=== PATIENT | female | born 1945 | race Caucasian/White ===

== ENCOUNTER 2016-05-10 18:29 | Inpatient (IN) | payer MEDICARE ==
[2016-05-10] MEDS ORDERED: HYDROCODONE/ACETAMINOPHEN 5-325 MG TABLET PO ONE (19:16)
[2016-05-10] MEDS ORDERED: HYDROCODONE/ACETAMINOPHEN 5-325 MG TABLET ONE (19:19)
--- NOTE | 2016-05-10 19:21 | ER Document Report ---
ED Medical Screen (RME) - General Stated Complaint: FALL,RIGHT ANKLE PAIN Notes: EMS reports the patient has a very high bed and her son gave her a footstool to be able to get in and out of the bed. Stumbled off stool today injuring right foot. EMS reports patient is insulin-dependent diabetic, and her blood sugar was over 500 today when I checked it. Patient may need social work consult as son is not very willing to assist in her care. I have greeted and performed a rapid initial assessment of this patient. A comprehensive ED assessment and evaluation of the patient, analysis of test results and completion of the medical decision making process will be conducted by additional ED providers. TRAVEL OUTSIDE OF THE [place] IN LAST 30 DAYS: No - Related Data Allergies/Adverse Reactions: atropine sulfate [From Lomotil] Allergy (Verified 05/10/16 19:18) Unknown diphenoxylate HCl [From Lomotil] Allergy (Verified 05/10/16 19:18) Unknown NSAIDS (Non-Steroidal Anti-Inflamma [Nsaids] Allergy (Verified 05/10/16 19:18) Unknown pseudoephedrine HCl [From Sudafed] Allergy (Verified 05/10/16 19:18) Unknown Past Medical History - Past Medical History Cardiac Medical History: Reports: Hx Coronary Artery Disease, Hx Heart Attack - x3 since january, Hx Hypercholesterolemia, Hx Hypertension Pulmonary Medical History: Denies: Hx Tuberculosis Neurological Medical History: Reports: Hx Cerebrovascular Accident. Denies: Hx Seizures Endocrine Medical History: Reports: Hx Diabetes Mellitus Type 2 GI Medical History: Reports: Hx Gastroesophageal Reflux Disease - hernia, Hx Ulcer - Moving from a prior gastric bypass anastomotic ulcer. Musculoskeltal Medical History: Reports Hx Arthritis Psychiatric Medical History: Reports: Hx Dementia, Hx Depression Past Surgical History: Reports: Hx Cardiac Catheterization, Hx Cardiac Surgery - CABG x3 twice, Hx Coronary Stent - x3 due to stent occlusion, Hx Gastric Bypass Surgery, Hx Hysterectomy, Hx Pancreatic Surgery, Hx Tonsillectomy - Immunizations Hx Diphtheria, Pertussis, Tetanus Vaccination: - unknown Physical Exam - Vital signs Vitals: Pulse Resp BP Pulse Ox 116 H 24 H 149/124 H 100 05/10/16 19:13 05/10/16 19:13 05/10/16 19:13 05/10/16 19:13 - Extremities Notes: Right foot swollen with bruising noted to up her foot. Painful with touch. Course - Vital Signs Vital signs: Temp Pulse Resp BP Pulse Ox 98.1 F 116 H 24 H 149/124 H 100 05/10/16 19:14 05/10/16 19:13 05/10/16 19:13 05/10/16 19:13 05/10/16 19:13
[2016-05-10 21:39] LABS: APPEARANCE,URINE CLEAR; BILIRUBIN,URINE NEGATIVE (NEGATIVE); GLUCOSE, URINE >=500 mg/dL (NEGATIVE); KETONES,URINE NEGATIVE (NEGATIVE); LEUKOCYTE ESTERASE,URINE NEGATIVE (NEGATIVE); NITRITE,URINE NEGATIVE (NEGATIVE); PROTEIN,URINE NEGATIVE (NEGATIVE); URINE SPECIFIC GRAVITY 1.024; UROBILINOGEN,URINE NEGATIVE mg/dL (<2.0)
[2016-05-10] MEDS ORDERED: OXYCODONE-ACETAMINOPHEN 5-325 MG TABLET PO ONE (22:02)
[2016-05-10 22:17] LABS: ABSOLUTE BASOPHILS # (AUTO) 0.1 10^3/uL (0.0-0.2); ABSOLUTE EOSINOPHILS # (AUTO) 0.1 10^3/uL (0.0-0.6); ABSOLUTE LYMPHOCYTES (AUTO) 1.8 10^3/uL (0.5-4.7); ABSOLUTE NEUT (AUTO) 8.8 10^3/uL (1.7-8.2); BASOPHILS % (AUTO) 0.7 % (0-2); EOSINOPHILS % (AUTO) 0.7 % (0-6); HEMATOCRIT 39.2 % (36.0-47.0); HEMOGLOBIN 12.4 g/dL (12.0-15.5); LYMPHOCYTES % (AUTO) 15.2 % (13-45); MEAN CORPUSCULAR HEMOGLOBIN 26.4 pg (27.0-33.4); MEAN CORPUSCULAR HGB CONC 31.7 g/dL (32.0-36.0); MEAN CORPUSCULAR VOLUME 83 fl (80-97); MONOCYTES % (AUTO) 8.5 % (3-13); RED CELL DISTRIBUTION WIDTH 15.6 % (11.5-14.0); SEGMENTED NEUTROPHILS % (AUTO) 74.9 % (42-78); WHITE BLOOD COUNT 11.7 10^3/uL (4.0-10.5)
[2016-05-10 22:38] LABS: ALANINE AMINOTRANSFERASE 23 U/L (9-52); ALKALINE PHOSPHATASE 161 U/L (38-126); ANION GAP 13 (5-19); ASPARTATE AMINO TRANSFERASE 9 U/L (14-36); BILIRUBIN,TOTAL 0.5 mg/dL (0.2-1.3); BLOOD UREA NITROGEN 24 mg/dL (7-20); CALCIUM 10.4 mg/dL (8.4-10.2); CARBON DIOXIDE 21 mmol/L (22-30); CHLORIDE 99 mmol/L (98-107); CREATININE RESULT 0.79 mg/dL (0.52-1.25); POTASSIUM 4.6 mmol/L (3.6-5.0); SODIUM 132.9 mmol/L (137-145); TOTAL PROTEIN 7.5 g/dL (6.3-8.2)
[2016-05-10 22:54] LABS: GLUCOSE 487 mg/dL (75-110)
[2016-05-11] MEDS ORDERED: NORMAL SALINE 1000 ML 1,000 ML IV PRN (00:14)
[2016-05-11] MEDS ORDERED: INSULIN REG, HUMAN 100 UNIT/ML 3 ML VIAL (PYX) SUBCUT ONE (00:14)
[2016-05-11] MEDS ORDERED: MORPHINE SULFATE 10 MG/ML INJ IV ONE ×2 (00:30→10:13)
--- NOTE | 2016-05-11 05:32 | ER Document Report ---
ED Extremity Problem, Lower - General Chief Complaint: Ankle Injury Stated Complaint: FALL,RIGHT ANKLE PAIN Time seen by provider: 05:30 Mode of Arrival: Stretcher Information source: Patient TRAVEL OUTSIDE OF THE [place] IN LAST 30 DAYS: No - HPI Patient complains to provider of: Injury, Pain, Swelling Location: Foot Occurred: This afternoon Where: Home Onset/Duration: Sudden Quality of pain: Achy Severity: Moderate Pain Level: 4 Context: Fell Recent injury: Yes Associated symptoms: Unable to bear weight Exacerbated by: Movement, Walking Relieved by: Nothing Notes: Patient is a 70-year-old female brought to the emergency room by EMS for complaints of injury to right foot that occurred earlier today, states she tripped over a bedside table causing injury to the foot, she denies a head injury or loss of consciousness, denies injury or pain elsewhere, although she does report that the pain radiates up the midportion of the lower leg - Related Data Allergies/Adverse Reactions: atropine sulfate [From Lomotil] Allergy (Verified 05/10/16 19:18) Unknown diphenoxylate HCl [From Lomotil] Allergy (Verified 05/10/16 19:18) Unknown NSAIDS (Non-Steroidal Anti-Inflamma [Nsaids] Allergy (Verified 05/10/16 19:18) Unknown pseudoephedrine HCl [From Sudafed] Allergy (Verified 05/10/16 19:18) Unknown Past Medical History - General Information source: Patient - Social History Smoking Status: Never Smoker Chew tobacco use (# tins/day): No Frequency of alcohol use: None Drug Abuse: None Family History: CAD, CVA, DM - Past Medical History Cardiac Medical History: Reports: Hx Coronary Artery Disease, Hx Heart Attack - x3 since january, Hx Hypercholesterolemia, Hx Hypertension Pulmonary Medical History: Denies: Hx Tuberculosis Neurological Medical History: Reports: Hx Cerebrovascular Accident. Denies: Hx Seizures Endocrine Medical History: Reports: Hx Diabetes Mellitus Type 2 Renal/ Medical History: Denies: Hx Peritoneal Dialysis GI Medical History: Reports: Hx Gastroesophageal Reflux Disease - hernia, Hx Ulcer - Moving from a prior gastric bypass anastomotic ulcer. Musculoskeltal Medical History: Reports Hx Arthritis Psychiatric Medical History: Reports: Hx Dementia, Hx Depression Past Surgical History: Reports: Hx Cardiac Catheterization, Hx Cardiac Surgery - CABG x3 twice, Hx Coronary Stent - x3 due to stent occlusion, Hx Gastric Bypass Surgery, Hx Hysterectomy, Hx Pancreatic Surgery, Hx Tonsillectomy - Immunizations Hx Diphtheria, Pertussis, Tetanus Vaccination: - unknown Hx Pneumococcal Vaccination: 02/03/13 Review of Systems - Review of Systems Constitutional: No symptoms reported EENT: No symptoms reported Cardiovascular: No symptoms reported Respiratory: No symptoms reported Gastrointestinal: No symptoms reported Genitourinary: No symptoms reported Female Genitourinary: No symptoms reported Musculoskeletal: See HPI Skin: No symptoms reported Hematologic/Lymphatic: No symptoms reported Neurological/Psychological: No symptoms reported -: Yes All other systems reviewed and negative Physical Exam - Vital signs Vitals: Pulse Resp BP Pulse Ox 116 H 24 H 149/124 H 100 05/10/16 19:13 05/10/16 19:13 05/10/16 19:13 05/10/16 19:13 Interpretation: Normal - General General appearance: Appears well, Alert - HEENT Head: Normocephalic, Atraumatic Eyes: Normal Pupils: PERRL - Respiratory Respiratory status: No respiratory distress Chest status: Nontender Breath sounds: Normal Chest palpation: Normal - Cardiovascular Rhythm: Tachycardia Heart sounds: Normal auscultation Murmur: No - Abdominal Inspection: Normal Distension: No distension Bowel sounds: Normal Tenderness: Nontender Organomegaly: No organomegaly - Back Back: Normal, Nontender - Extremities General upper extremity: Normal inspection, Nontender, Normal color, Normal ROM , Normal temperature General lower extremity: No: Ananda's sign Foot: Tender, Ecchymosis - Patient's right foot with significant swelling, ecchymosis and tenderness diffusely, pain with range of motion testing, 2+ DP pulses and purse capillary refill - Neurological Cognition: Confused Orientation: Disoriented to events [place] Coma Scale Eye Opening: Spontaneous [place] Coma Scale Verbal: Confused [place] Coma Scale Motor: Obeys Commands [place] Coma Scale Total: 14 Speech: Normal Motor strength normal: LUE, RUE, LLE, RLE - Psychological Associated symptoms: Normal affect, Normal mood - Skin Skin Temperature: Warm Skin Moisture: Dry Skin Color: Normal Course - Re-evaluation Re-evalutation: 05/11/16 05:38 Patient is resting comfortably, imaging shows no evidence of fracture or dislocation, patient was advised of this, she is pleasantly confused and forgetful, however it appears as though she lives at home alone, there is a son listed as an emergency contact with a separate address from patient's, I have asked nursing staff to attempt to contact her son, however the nurse practitioner then initially saw patient stated "patient may need social work consult as son is not very willing to assist in her care", that nurse practitioner is no longer on shift, so I'm unable to clarify whether patient stated this or the sun in fact stated he was unable to help patient, therefore patient will be held in the emergency room for social work consult for possible placement in a short-term rehabilitation until she is able to ambulate and take care of herself once again - Vital Signs Vital signs: Temp Pulse Resp BP Pulse Ox 98.1 F 116 H 24 H 149/124 H 100 05/10/16 19:14 05/10/16 19:13 05/10/16 19:13 05/10/16 19:13 05/10/16 19:13 - Laboratory Result Diagrams: 05/10/16 22:00 05/10/16 22:00 Laboratory results interpreted by me: 05/10/16 05/10/16 05/10/16 21:15 22:00 22:00 WBC 11.7 H MCH 26.4 L MCHC 31.7 L RDW 15.6 H Absolute Neutrophils 8.8 H Sodium 132.9 L Carbon Dioxide 21 L BUN 24 H Glucose 487 H* POC Glucose Calcium 10.4 H AST 9 L Alkaline Phosphatase 161 H Urine Glucose (UA) >=500 H 05/11/16 03:07 WBC MCH MCHC RDW Absolute Neutrophils Sodium Carbon Dioxide BUN Glucose POC Glucose 344 H Calcium AST Alkaline Phosphatase Urine Glucose (UA) - Diagnostic Test Radiology reviewed: Image reviewed, Reports reviewed Procedures - Immobilization Right Foot Time completed: 05:40 Pre-Proc Neuro Vasc Exam: Normal Immobilizer type: Posterior ankle Performed by: PCT Post-Proc Neuro Vasc Exam: Normal Alignment checked and good: Yes Discharge - Discharge Clinical Impression: Right foot strain Qualifiers: Encounter type: initial encounter Qualified Code(s): S96.911A - Strain of unspecified muscle and tendon at ankle and foot level, right foot, initial encounter Condition: Stable Disposition: HOME, SELF-CARE Instructions: Soft Ankle Splint ([facility]), Ice & Elevation ([facility]), Sprained Ankle ( [facility]) Additional Instructions: Follow up with your primary care provider and an orthopedic surgeon in one to 2 days. Return to the emergency room immediately if symptoms worsen or any additional concerns. Ice and elevate the affected extremity. Limit weightbearing. Prescriptions: Hydrocodone/Acetaminophen [Hydrocodon-Acetaminophen 5-325] 1 each PO Q6 #20 tablet Referrals: HAILY WEBB MD [ACTIVE STAFF] - Follow up as needed
[2016-05-11] MEDS ORDERED: OXYCODONE-ACETAMINOPHEN 5-325 MG TABLET PO PRN (14:37)
[2016-05-11] MEDS ORDERED: INSULIN GLARGINE,HUM.REC.ANLOG 1,000 UNIT/10 ML UNIT SUBCUT SCH (14:45)
[2016-05-11] MEDS ORDERED: DEXTROSE 40% GEL 15 GM TUBE PO PRN ×2 (14:51)
[2016-05-11] MEDS ORDERED: DEXTROSE 50%-WATER 25 GM/50 ML DISP.SYRIN IV PRN ×2 (14:51)
[2016-05-11] MEDS ORDERED: GLUCAGON,HUMAN RECOMB 1 MG INJ IM PRN (14:51)
[2016-05-11] MEDS ORDERED: INSULIN GLARGINE,HUM.REC.ANLOG 1,000 UNIT/10 ML UNIT SUBCUT ONE (15:15)
[2016-05-11] MEDS ORDERED: ENOXAPARIN SODIUM INJ 40 MG/0.4 ML DISP.SYRIN SUBCUT ONE (16:30)
--- NOTE | 2016-05-11 16:36 | PDOC H&P ---
History of Present Illness Admission Date/PCP: 05/11/16 14:37 History of Present Illness: LAINA WEAVER is a 70 year old female with known coronary artery disease and PTCA and stent in 2013 With sustained a fall while walking up the stairs today Patient a was brought to the ED and was diagnosed of her ankle fracture Patient was not able to ambulate after the fall and she was extremely confused Had no recollection of what medication she takes; she states that her confusion has been going on now for "a while "it has gotten worse but is now worse to the point that she feels she cannot care for herself She lives alone, has diabetes Patient denies any chest pain shortness of breath, she denies having had a syncopal episode Past Medical History Cardiac Medical History: Reports: Coronary Artery Disease, Myocardial Infarction - x3 since january, Hyperlipidema, Hypertension Pulmonary Medical History: Denies: Tuberculosis Neurological Medical History: Denies: Seizures Endocrine Medical History: Reports: Diabetes Mellitus Type 2 GI Medical History: Reports: Gastroesophageal Reflux Disease - hernia Musculoskeltal Medical History: Reports: Arthritis Psychiatric Medical History: Reports: Dementia, Depression Hematology: Reports: Anemia Past Surgical History Past Surgical History: Reports: Cardiac Catheterization, Coronary Stent - x3 due to stent occlusion, Gastric Bypass Surgery, Hysterectomy, Tonsillectomy Social History Information Source: Patient Smoking Status: Never Smoker Frequency of Alcohol Use: Rare Hx Recreational Drug Use: No Hx Prescription Drug Abuse: No - Advance Directive Resuscitation Status: Do Not Resuscitate Surrogate healthcare decision maker:: Her son Lane Family History Family History: CAD, CVA, DM Parental Family History Reviewed: Yes Children Family History Reviewed: Yes Sibling(s) Family History Reviewed.: Yes Medication/Allergy Allergies/Adverse Reactions: atropine sulfate [From Lomotil] Allergy (Verified 05/10/16 19:18) Unknown diphenoxylate HCl [From Lomotil] Allergy (Verified 05/10/16 19:18) Unknown NSAIDS (Non-Steroidal Anti-Inflamma [Nsaids] Allergy (Verified 05/10/16 19:18) Unknown pseudoephedrine HCl [From Sudafed] Allergy (Verified 05/10/16 19:18) Unknown Review of Systems Constitutional: ABSENT: anorexia, chills, fever(s), headache(s) Cardiovascular: ABSENT: chest pain, dyspnea on exertion, edema, orthropnea, palpitations Respiratory: ABSENT: cough, hemoptysis Gastrointestinal: ABSENT: abdominal pain, constipation, diarrhea, hematemesis, hematochezia, nausea, vomiting Musculoskeletal: PRESENT: other - severe pain in the left ankle Neurological: PRESENT: confusion, memory loss, weakness Psychiatric: PRESENT: depression Physical Exam Vital Signs: Temp Pulse Resp BP Pulse Ox 98.2 F 91 16 154/65 H 95 05/11/16 15:42 05/11/16 15:42 05/11/16 15:42 05/11/16 15:42 05/11/16 15:42 Intake & Output 05/10/16 05/11/16 05/12/16 00:59 00:59 00:59 Weight 77.111 kg General appearance: PRESENT: cooperative, mild distress Head exam: PRESENT: atraumatic, normocephalic Eye exam: PRESENT: conjunctiva pink, EOMI, PERRLA. ABSENT: scleral icterus Neck exam: ABSENT: carotid bruit - a, JVD, lymphadenopathy, thyromegaly Respiratory exam: PRESENT: clear to auscultation kay[place]. ABSENT: rales, rhonchi, wheezes Cardiovascular exam: PRESENT: RRR. ABSENT: diastolic murmur, rubs, systolic murmur Pulses: PRESENT: normal dorsalis pedis pul GI/Abdominal exam: PRESENT: normal bowel sounds, soft. ABSENT: distended, guarding, mass, organolmegaly, rebound, tenderness Extremities exam: PRESENT: tenderness, other - Left ankle is in a posterior splint Neurological exam: PRESENT: awake, CN II-XII grossly intact Psychiatric exam: PRESENT: anxious, depressed Results Laboratory Results: Labs- Last Values WBC 11.7 10^3/uL (4.0-10.5) H 05/10/16 22:00 RBC 4.70 10^6/uL (3.72-5.28) 05/10/16 22:00 Hgb 12.4 g/dL (12.0-15.5) 05/10/16 22:00 Hct 39.2 % (36.0-47.0) 05/10/16 22:00 MCV 83 fl (80-97) 05/10/16 22:00 MCH 26.4 pg (27.0-33.4) L 05/10/16 22:00 MCHC 31.7 g/dL (32.0-36.0) L 05/10/16 22:00 RDW 15.6 % (11.5-14.0) H 05/10/16 22:00 Plt Count 336 10^3/uL (150-450) 05/10/16 22:00 Seg Neutrophils % 74.9 % (42-78) 05/10/16 22:00 Lymphocytes % 15.2 % (13-45) 05/10/16 22:00 Monocytes % 8.5 % (3-13) 05/10/16 22:00 Eosinophils % 0.7 % (0-6) 05/10/16 22:00 Basophils % 0.7 % (0-2) 05/10/16 22:00 Absolute Neutrophils 8.8 10^3/uL (1.7-8.2) H 05/10/16 22:00 Absolute Lymphocytes 1.8 10^3/uL (0.5-4.7) 05/10/16 22:00 Absolute Monocytes 1.0 10^3/uL (0.1-1.4) 05/10/16 22:00 Absolute Eosinophils 0.1 10^3/uL (0.0-0.6) 05/10/16 22:00 Absolute Basophils 0.1 10^3/uL (0.0-0.2) 05/10/16 22:00 Sodium 132.9 mmol/L (137-145) L 05/10/16 22:00 Potassium 4.6 mmol/L (3.6-5.0) 05/10/16 22:00 Chloride 99 mmol/L (98-107) 05/10/16 22:00 Carbon Dioxide 21 mmol/L (22-30) L 05/10/16 22:00 Anion Gap 13 (5-19) 05/10/16 22:00 BUN 24 mg/dL (7-20) H 05/10/16 22:00 Creatinine 0.79 mg/dL (0.52-1.25) 05/10/16 22:00 Est GFR ( Amer) > 60 (>60) 05/10/16 22:00 Est GFR (Non-Af Amer) > 60 (>60) 05/10/16 22:00 Glucose 487 mg/dL (75-110) H* 05/10/16 22:00 POC Glucose 367 mg/dL (70-110) H 05/11/16 15:32 Calcium 10.4 mg/dL (8.4-10.2) H 05/10/16 22:00 Total Bilirubin 0.5 mg/dL (0.2-1.3) 05/10/16 22:00 Direct Bilirubin 0.0 mg/dL (0.0-0.3) 05/10/16 22:00 AST 9 U/L (14-36) L 05/10/16 22:00 ALT 23 U/L (9-52) 05/10/16 22:00 Alkaline Phosphatase 161 U/L (38-126) H 05/10/16 22:00 Total Protein 7.5 g/dL (6.3-8.2) 05/10/16 22:00 Albumin 4.0 g/dL (3.5-5.0) 05/10/16 22:00 Urine Color STRAW 05/10/16 21:15 Urine Appearance CLEAR 05/10/16 21:15 Urine pH 5.0 (5.0-9.0) 05/10/16 21:15 Ur Specific [place] 1.024 05/10/16 21:15 Urine Protein NEGATIVE mg/dL (NEGATIVE) 05/10/16 21:15 Urine Glucose (UA) >=500 mg/dL (NEGATIVE) H 05/10/16 21:15 Urine Ketones NEGATIVE mg/dL (NEGATIVE) 05/10/16 21:15 Urine Blood NEGATIVE (NEGATIVE) 05/10/16 21:15 Urine Nitrite NEGATIVE (NEGATIVE) 05/10/16 21:15 Urine Bilirubin NEGATIVE (NEGATIVE) 05/10/16 21:15 Urine Urobilinogen NEGATIVE mg/dL (<2.0) 05/10/16 21:15 Ur Leukocyte Esterase NEGATIVE (NEGATIVE) 05/10/16 21:15 Urine WBC (Auto) 2 /HPF 05/10/16 21:15 Squamous Epi Cells Auto 1 /HPF 05/10/16 21:15 Urine Ascorbic Acid NEGATIVE (NEGATIVE) 05/10/16 21:15 Impressions: Foot X-Ray 05/10/16 19:21 IMPRESSION: DEGENERATIVE CHANGE ABOVE. NO RADIOGRAPHIC EVIDENCE OF ACUTE INJURY. Ankle X-Ray 05/10/16 22:02 IMPRESSION: TINY BONE FRAGMENT DEEP TO THE LATERAL MALLEOLUS MAY REPRESENT SEQUELA TO ACUTE OR CHRONIC AVULSION TYPE INJURY. CORRELATE WITH SITE OF PAIN AND MECHANISM OF INJURY. ADDITIONAL CHRONIC CHANGES ABOVE. Assessment & Plan - Diagnosis (1) Right ankle sprain Qualifiers: Involved ligament of ankle: unspecified ligament Is this a current diagnosis for this admission?: YesPlan: Keep the patient for now in the posterior splint We will have physical therapy evaluate her CAM walker boot will be applied (2) Encephalopathy Is this a current diagnosis for this admission?: YesPlan: Acute on chronic Or? 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 transplanted heart: [place] heart Associated angina: with unspecified angina Qualified Code(s): I25.119 - Atherosclerotic heart disease of [place] coronary artery with unspecified angina pectoris Is this a current diagnosis for this admission?: YesPlan: Her we will obtain serial cardiac enzymes and an EKG Patient does not mention any chest pain We will continue patient's medications when the list is available - Time Time Spent with patient: Patient was admitted as an inpatient to medical unit Time Spent: 50 to 70 Minutes
[2016-05-11] MEDS: TRAMADOL HCL 50 MG TABLET PO PRN (17:23)
[2016-05-11] MEDS: INSULIN LISPRO 100 UNIT/ML 3 ML VIAL SUBCUT PRN ×2 (17:24→22:00)
[2016-05-11 17:42] LABS: APPEARANCE,URINE SLIGHTLY-CLOUDY; BILIRUBIN,URINE NEGATIVE (NEGATIVE); GLUCOSE, URINE >=500 mg/dL (NEGATIVE); KETONES,URINE NEGATIVE (NEGATIVE); LEUKOCYTE ESTERASE,URINE MODERATE (NEGATIVE); NITRITE,URINE NEGATIVE (NEGATIVE); PROTEIN,URINE NEGATIVE (NEGATIVE); URINE SPECIFIC GRAVITY 1.025; UROBILINOGEN,URINE NEGATIVE mg/dL (<2.0)
[2016-05-11] MEDS ORDERED: INFLUENZA ADLT QUAD (36MOS+) 2016-17 VAC 0.5 ML SYR IM PRN (17:48)
[2016-05-11 19:13] LABS: FOLATE > 20.00 ng/mL (>2.76)
[2016-05-11] MEDS: INSULIN GLARGINE,HUM.REC.ANLOG 300 UNIT/3 ML INSULN.PEN SUBCUT SCH (21:57)
[2016-05-12] MEDS: TRAMADOL HCL 50 MG TABLET PO PRN ×3 (06:01→22:39)
[2016-05-12 06:39] LABS: ABSOLUTE BASOPHILS # (AUTO) 0.1 10^3/uL (0.0-0.2); ABSOLUTE EOSINOPHILS # (AUTO) 0.2 10^3/uL (0.0-0.6); ABSOLUTE LYMPHOCYTES (AUTO) 2.5 10^3/uL (0.5-4.7); ABSOLUTE MONOCYTES (AUTO) 0.9 10^3/uL (0.1-1.4); ABSOLUTE NEUT (AUTO) 3.9 10^3/uL (1.7-8.2); BASOPHILS % (AUTO) 0.9 % (0-2); EOSINOPHILS % (AUTO) 2.2 % (0-6); HEMATOCRIT 39.2 % (36.0-47.0); HEMOGLOBIN 12.7 g/dL (12.0-15.5); HGB HCT DIFFERENCE -1.1; LYMPHOCYTES % (AUTO) 33.1 % (13-45); MEAN CORPUSCULAR HGB CONC 32.3 g/dL (32.0-36.0); MEAN CORPUSCULAR VOLUME 84 fl (80-97); MONOCYTES % (AUTO) 11.8 % (3-13); RED BLOOD COUNT 4.69 10^6/uL (3.72-5.28); RED CELL DISTRIBUTION WIDTH 15.2 % (11.5-14.0); WHITE BLOOD COUNT 7.4 10^3/uL (4.0-10.5)
[2016-05-12 06:55] LABS: ALANINE AMINOTRANSFERASE 26 U/L (9-52); ALBUMIN 3.7 g/dL (3.5-5.0); ALKALINE PHOSPHATASE 151 U/L (38-126); ANION GAP 14 (5-19); ASPARTATE AMINO TRANSFERASE 16 U/L (14-36); BILIRUBIN,TOTAL 0.6 mg/dL (0.2-1.3); BLOOD UREA NITROGEN 18 mg/dL (7-20); CALCIUM 10.3 mg/dL (8.4-10.2); CARBON DIOXIDE 22 mmol/L (22-30); CHLORIDE 106 mmol/L (98-107); CREATININE RESULT 0.65 mg/dL (0.52-1.25); GLUCOSE 169 mg/dL (75-110); POTASSIUM 4.6 mmol/L (3.6-5.0); SODIUM 141.7 mmol/L (137-145); TOTAL PROTEIN 7.1 g/dL (6.3-8.2)
[2016-05-12] MEDS: ENOXAPARIN SODIUM INJ 40 MG/0.4 ML DISP.SYRIN SUBCUT SCH (08:15)
[2016-05-12] MEDS: INSULIN GLARGINE,HUM.REC.ANLOG 300 UNIT/3 ML INSULN.PEN SUBCUT SCH ×2 (09:35→22:20)
[2016-05-12 10:35] LABS: CHOLESTEROL 174.37 mg/dL (0-200); Direct HDL 47 mg/dL (>40); TRIGLYCERIDES 159 mg/dL (<150)
[2016-05-12 10:46] LABS: DIRECT LDL 94 mg/dL (<100); VLDL CHOLESTEROL 31.8 mg/dL (10-31)
[2016-05-12] MEDS: CYANOCOBALAMIN (VITAMIN B-12) INJ 1000 MCG/1 ML VIAL IM SCH (12:54)
[2016-05-12] MEDS: INSULIN LISPRO 100 UNIT/ML 3 ML VIAL SUBCUT PRN ×2 (13:12→18:18)
--- NOTE | 2016-05-12 13:39 | PDOC PROGRESS REPORT ---
Subjective Progress Note for:: 05/12/16 Subjective:: still complaining of severe pain Pain right ankle and pain right flank radiating to right leg " like sciatica" No fever , no chills no headache or SOB Physical Exam Vital Signs: Temp Pulse Resp BP Pulse Ox 98.4 F 92 18 119/46 L 96 05/12/16 11:47 05/12/16 11:47 05/12/16 11:47 05/12/16 11:47 05/12/16 11:47 Intake & Output 05/11/16 05/12/16 05/13/16 00:59 00:59 00:59 Intake Total 0 Output Total 300 Balance -300 Weight 77.111 kg General appearance: PRESENT: no acute distress, well-developed, well-nourished Head exam: PRESENT: atraumatic, normocephalic Eye exam: PRESENT: conjunctiva pink, EOMI, PERRLA. ABSENT: scleral icterus Ear exam: PRESENT: normal external ear exam Mouth exam: PRESENT: moist, tongue midline Neck exam: ABSENT: carotid bruit, JVD, lymphadenopathy, thyromegaly Respiratory exam: PRESENT: clear to auscultation kaylen. ABSENT: rales, rhonchi, wheezes Cardiovascular exam: PRESENT: RRR. ABSENT: diastolic murmur, rubs, systolic murmur Pulses: PRESENT: normal dorsalis pedis pul Vascular exam: PRESENT: normal capillary refill GI/Abdominal exam: PRESENT: normal bowel sounds, soft. ABSENT: distended, guarding, mass, organolmegaly, rebound, tenderness Rectal exam: PRESENT: deferred Extremities exam: PRESENT: full ROM, other - splint applied to right ankle. ABSENT: calf tenderness, clubbing, pedal edema Neurological exam: PRESENT: alert, awake, oriented to person, oriented to place , oriented to time, oriented to situation, CN II-XII grossly intact. ABSENT: motor sensory deficit Psychiatric exam: PRESENT: appropriate affect, normal mood. ABSENT: homicidal ideation, suicidal ideation Skin exam: PRESENT: dry, intact, warm. ABSENT: cyanosis, rash Results Laboratory Results: 05/12/16 06:12 05/12/16 06:12 05/11/16 05/11/16 05/11/16 17:30 17:35 17:35 WBC RBC Hgb Hct MCV MCH MCHC RDW Plt Count Seg Neutrophils % Lymphocytes % Monocytes % Eosinophils % Basophils % Absolute Neutrophils Absolute Lymphocytes Absolute Monocytes Absolute Eosinophils Absolute Basophils Sodium Potassium Chloride Carbon Dioxide Anion Gap BUN Creatinine Est GFR ( Amer) Est GFR (Non-Af Amer) Glucose Calcium Total Bilirubin AST ALT Alkaline Phosphatase Total Protein Albumin Triglycerides Cholesterol LDL Cholesterol Direct VLDL Cholesterol HDL Cholesterol Vitamin B12 194.0 L Folate > 20.00 TSH 3.47 Urine Color YELLOW Urine Appearance SLIGHTLY-CLOUDY Urine pH 5.0 Ur Specific [place] 1.025 Urine Protein NEGATIVE Urine Glucose (UA) >=500 H Urine Ketones NEGATIVE Urine Blood SMALL H Urine Nitrite NEGATIVE Ur Leukocyte Esterase MODERATE H Urine WBC (Auto) 47 Urine RBC (Auto) 1 05/12/16 05/12/16 05/12/16 06:12 06:12 06:12 WBC 7.4 RBC 4.69 Hgb 12.7 Hct 39.2 MCV 84 MCH 27.0 MCHC 32.3 RDW 15.2 H Plt Count 368 Seg Neutrophils % 52.0 Lymphocytes % 33.1 Monocytes % 11.8 Eosinophils % 2.2 Basophils % 0.9 Absolute Neutrophils 3.9 Absolute Lymphocytes 2.5 Absolute Monocytes 0.9 Absolute Eosinophils 0.2 Absolute Basophils 0.1 Sodium 141.7 Potassium 4.6 Chloride 106 Carbon Dioxide 22 Anion Gap 14 BUN 18 Creatinine 0.65 Est GFR ( Amer) > 60 Est GFR (Non-Af Amer) > 60 Glucose 169 H Calcium 10.3 H Total Bilirubin 0.6 AST 16 ALT 26 Alkaline Phosphatase 151 H Total Protein 7.1 Albumin 3.7 Triglycerides 159 H Cholesterol 174.37 LDL Cholesterol Direct 94 VLDL Cholesterol 31.8 H HDL Cholesterol 47 Vitamin B12 Folate TSH Urine Color Urine Appearance Urine pH Ur Specific [place] Urine Protein Urine Glucose (UA) Urine Ketones Urine Blood Urine Nitrite Ur Leukocyte Esterase Urine WBC (Auto) Urine RBC (Auto) Impressions: Foot X-Ray 05/10/16 19:21 IMPRESSION: DEGENERATIVE CHANGE ABOVE. NO RADIOGRAPHIC EVIDENCE OF ACUTE INJURY. Ankle X-Ray 05/10/16 22:02 IMPRESSION: TINY BONE FRAGMENT DEEP TO THE LATERAL MALLEOLUS MAY REPRESENT SEQUELA TO ACUTE OR CHRONIC AVULSION TYPE INJURY. CORRELATE WITH SITE OF PAIN AND MECHANISM OF INJURY. ADDITIONAL CHRONIC CHANGES ABOVE. Head CT 05/11/16 14:47 IMPRESSION: MILD CHRONIC CHANGES OF ATROPHY AND MICROVASCULAR ISCHEMIA. NO ACUTE PROCESS. Assessment & Plan - Diagnosis (1) Right ankle sprain Qualifiers: Involved ligament of ankle: unspecified ligament Is this a current diagnosis for this admission?: YesPlan: PT will evaluate patient Patient may bear weight with cam walker (2) Encephalopathy Is this a current diagnosis for this admission?: YesPlan: likely to be secondary to Vitamin B12 deficiency and hyperglycemia Patient has severe short memory loss cannot live alone and care for self (3) Hyperglycemia due to type 2 diabetes mellitus Qualifiers: Diabetes mellitus terminal supervisor insulin use: unspecified penitentiary insulin use status Qualified Code(s): E11.65 - Type 2 diabetes mellitus with hyperglycemia Is this a current diagnosis for this admission?: YesPlan: increase lantus / lispro sliding scale (4) Coronary artery disease Qualifiers: Coronary Disease-Associated Artery/Lesion type: [place] artery [place] vs. transplanted heart: [place] heart Associated angina: with unspecified angina Qualified Code(s): I25.119 - Atherosclerotic heart disease of [place] coronary artery with unspecified angina pectoris Is this a current diagnosis for this admission?: Yes (6) Vitamin B12 deficiency Is this a current diagnosis for this admission?: YesPlan: initiate IM injections (7) Aortic stenosis Qualifiers: Cardiac valve disease etiology: etiology unspecified Qualified Code( s): I35.0 - Nonrheumatic aortic (valve) stenosis Is this a current diagnosis for this admission?: YesPlan: mild Aortic stenosis by echo 2013 will repeat echocardiogram - Time Time Spent with patient: 15-24 minutes - Inpatient Certification Medical Necessity: Need Close Monitoring Due to Risk of Patient Decompensation, Risk of Complication if Not Cared For in Hospital - uncontrolled diabetes in patient too confused to care for self vitamin [id number] needsreplacement with vitamin B12 IM initially
[2016-05-12] MEDS ORDERED: INSULIN GLARGINE,HUM.REC.ANLOG 300 UNIT/3 ML INSULN.PEN SUBCUT SCH (22:00)
[2016-05-13] MEDS: TRAMADOL HCL 50 MG TABLET PO PRN (04:44)
[2016-05-13] MEDS: ENOXAPARIN SODIUM INJ 40 MG/0.4 ML DISP.SYRIN SUBCUT SCH (09:50)
[2016-05-13] MEDS: INSULIN GLARGINE,HUM.REC.ANLOG 300 UNIT/3 ML INSULN.PEN SUBCUT SCH ×2 (09:51→22:09)
--- NOTE | 2016-05-13 11:29 | Physician Advisory Note ---
Physician Advisor ProgressNote .: [facility], I have reviewed the medical record for this patient. Physician Advisor Statement: Possible documentation opportunities if attending agrees: 1. "Principal Dx" - 'ankle sprain' is not typically going to be accepted as a reason for full Inpatient Admission. Please list as 1st dx the Principal Reason pt needs to be in the hospital. 2. "Acute encephalopathy on top of likely mild dementia" - need to clarify each day, as best as you can, whether or not pt is back to baseline mental status or not, & which days she had mental status worse than baseline. - Nursing notes report pt oriented to person only on 05/11, but A&O x3 since AM. Is this what you have found? - Is she now able to manage her DM adequately outpt, or ....? 3. "Medical Necessity" - crucial in a case such as this in which the main dx.s are not "slam-dunk" obvious Inpatient material. Need to document (for each night pt in hospital including 05/11-) what you are concerned could happen if pt not kept in hospital - development of DKA? ACS? Severe FSBS changes that could produce acute worsening mental status & alertness, risking falls/fx, acute organ dysfunction ...? (see below bolded suggestions) 4. "Acute Metabolic Acidosis at time of admission, likely due to severe hyperglycemia, now resolved" 5. ? "chronic diastolic CHF" (+diast dysfunction by ECHO 2013) As always, if concerned about any unstable VS or abnormal labs, please comment on them & note what doing about them, & please document each day the potential clinical problems you are concerned could occur if pt not kept in hospital for tx at this time. 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 HR 116, RR 24, WBC 11.7. Confused, forgetful, lives alone, severe pain, unable to ambulate. ED gave 8units regular insulin & 1L NS wide open. (+) Na 132.9 with glc 487, bicarb 21, BUN 24 w/Cr 0.79, Ca 10.4, U/A (+) mod LE . Attending ordered Lantus Q12h, VS @4h, I/Os, daily wts, PT, SSI. Status: Elderly pt with tremendous CAD issues, DM-2, HTN, past CVA presented with ankle sprain. This alone would not be enough to justify admission. Acute AMS is also not typically an Inpt dx unless there are extenuating circumstances/co-morbidities. This pt already needed 1 MN in ED 05/10 for evaluation, & on 05/11 was fully expected to require at least a 2nd MN for stabilization sufficient for safe d/c , due to her uncontrolled co-morbidity of DM. She came in w/ tremendous hyperglycemia with associated pseudohyponatremia, acute metabolic acidosis, & dehydration by BUN/Cr ratio, & what was most concerning in this situation, was extremely confused, reportedly worse than baseline. She was unable to tell her home meds list. She was oriented to self only. Nursing note at 14:62 states pt unable to give full hx & med rec, forgetting she had already ordered dinner 5 min after doing so. This was not a pt who could be expected to safely manage her DM at home alone, especially with insulin needs. Her glc of 487 put her had high risk of further acute coronary/ cardiovascular events. Her significant risks for developing hypoglycemia if allowed to manage her own diabetes with agents to drop FSBS certainly gave high risk for acute adverse event such as syncope/falls. This appears to be the main clinical reason to keep her in hospital initially. Her A1C >14.0 shows she has had extremely poor DM control for at least the last 3mo. As of 05/12, after 2MNs in hospital, staff still trying to determine her home meds list - pt still unable to give list. Attending documents severe short term memory loss, inability to safely care for self on her own anymore. Attending actively titrating up on Lantus, from 20 units bid to 25 units bid on 05/12, while FSBSs were quite unstable, ranging from 169 to 400. Ca still mildly high at 10.3. Attending concerned about aortic stenosis previously found in 2012, ordered ECHO. As of 05/13, pt FSBS before bkft = only 94, with new order today to change Lantus to 30units bid AC. Potential for dangerous hypoglycemia is possible with aggressive up-titration of Lantus if not monitored very closely. Hypoglycemia can produce yet further worsening of mental status & even alertness , increasing risks for further organ dysfunction, falls, fractures. Tx in inpatient hospital setting appears to be medically reasonable & necessary to protect pt's health, safety, & medical condition. Appropriate for Inpt status. Thanks for your help with documentation accuracy/specificity improvement! Mely Quiroz MD [facility] Physician Advisor, Fellow of Hospital Medicine
[2016-05-13] MEDS: CYANOCOBALAMIN (VITAMIN B-12) INJ 1000 MCG/1 ML VIAL IM SCH (12:04)
[2016-05-13] MEDS: OXYCODONE-ACETAMINOPHEN 5-325 MG TABLET PO PRN ×2 (12:05→19:30)
[2016-05-13] MEDS: DIPHENHYDRAMINE HCL 25 MG CAPSULE PO PRN (12:05)
[2016-05-13] MEDS: INSULIN LISPRO 100 UNIT/ML 3 ML VIAL SUBCUT PRN ×2 (13:47→22:09)
--- NOTE | 2016-05-13 15:17 | XCELERA REPORT ---
[address] [address] Transthoracic Echocardiogram Report Name: LAINA WEAVER Age: 70 yrs Gender: Female : 1945 Patient Status: Inpatient Patient Location: 2N\S\210\S\A Study Date: 05/13/2016 10:24 AM Height: 65 in Weight: 170 lb BSA: 1.8 m2 Procedure: A complete two-dimensional transthoracic echocardiogram was performed (2D, M-mode, spectral and color flow Doppler). The study was technically adequate with some images being suboptimal in quality. Reason For Study: heart murmur Ordering Physician: GARCIA RODRÍGUEZ Performed By: Barb Garcia Interpretation Summary The left ventricular ejection fraction is normal. Doppler measurements suggest pseudonormalized left ventricular relaxation, which is associated with grade II/IV or mild to moderate diastolic dysfunction There is borderline concentric left ventricular hypertrophy. The left ventricle is grossly normal size. Wall motion cannot be accurately commented on, but no definite regional wall motion abnormalities noted. The right ventricular systolic function is normal. The left atrium is moderately dilated. The right atrium is normal in size There is a mild amount of mitral regurgitation There is no mitral valve stenosis. There is mild to moderate aortic stenosis There is a peak gradient of 30 mean 17 mm of Hg. No aortic regurgitation is present. There is a trace or physiologic amount of tricuspid regurgitation Tricuspid regurgitation jet envelope not well defined to measure RV systolic pressure accurately. Minimal pericardial effusion. MMode/2D Measurements \T\ Calculations RVDd: 2.8 cm LVIDd: 4.8 cm FS: 35.6 % Ao root diam: 2.2 cm IVSd: 0.75 cm LVIDs: 3.1 cm EDV(Teich): 109.3 ml LVPWd: 0.76 cmESV(Teich): 38.2 ml Ao root area: 3.8 cm2 EF(Teich): 65.0 % LA dimension: 4.7 cm LVOT diam: 2.2 cm LVOT area: 3.7 cm2 Doppler Measurements \T\ Calculations MV E max freida: MV P1/2t max freida: Ao V2 max: LV V1 max P.4 cm/sec 82.9 cm/sec 263.7 cm/sec 3.7 mmHg MV A max freida: MV P1/2t: 58.1 msec Ao max PG: LV V1 mean P.2 cm/sec MVA(P1/2t): 3.8 cm2 27.8 mmHg 1.9 mmHg MV E/A: 0.85 MV dec slope: Ao V2 mean: LV V1 max: 418.0 cm/sec2 186.5 cm/sec 96.3 cm/sec MV dec time: 0.22 sec Ao mean PG: LV V1 mean: 16.1 mmHg 63.7 cm/sec Ao V2 VTI: 56.4 cmLV V1 VTI: CRYS(I,D): 1.4 cm2 21.8 cm CRYS(V,D): 1.4 cm2 SV(LVOT): 80.6 ml PA V2 max: 94.8 cm/sec PA max P.6 mmHg Left Ventricle The left ventricle is grossly normal size. There is borderline concentric left ventricular hypertrophy. The left ventricular ejection fraction is normal. Doppler measurements suggest pseudonormalized left ventricular relaxation, which is associated with grade II/IV or mild to moderate diastolic dysfunction. Wall motion cannot be accurately commented on, but no definite regional wall motion abnormalities noted. Right Ventricle The right ventricle is grossly normal size. There is normal right ventricular wall thickness. The right ventricular systolic function is normal. Atria The right atrium is normal in size. The left atrium is moderately dilated. A patent foramen ovale is suspected. Mitral Valve There is mild mitral annular calcification. There is no mitral valve stenosis. There is a mild amount of mitral regurgitation. Aortic Valve The aortic valve is moderately calcified. The aortic valve is trileaflet. There is mild to moderate aortic stenosis. There is a peak gradient of 30 mean 17 mm of Hg. No aortic regurgitation is present. Tricuspid Valve The tricuspid valve is not well visualized, but is grossly normal. There is no tricuspid stenosis. There is a trace or physiologic amount of tricuspid regurgitation. Tricuspid regurgitation jet envelope not well defined to measure RV systolic pressure accurately. Pulmonic Valve The pulmonic valve is not well visualized. Great Vessels The aortic root is not well visualized but is probably normal size. The inferior vena cava appeared normal and decreased > 50% with respiration (RAP 5-10 mmHg). Effusions Minimal pericardial effusion. : GARCIA RODRÍGUEZ > Brianna Wolf
--- NOTE | 2016-05-13 21:53 | PDOC PROGRESS REPORT ---
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 ABSENT: scleral icterus Ear exam: PRESENT: normal external ear exam Mouth exam: PRESENT: moist, tongue midline Neck exam: ABSENT: carotid bruit, JVD, lymphadenopathy, thyromegaly Respiratory exam: PRESENT: clear to auscultation kaylen. ABSENT: rales, rhonchi, wheezes Cardiovascular exam: PRESENT: RRR. ABSENT: diastolic murmur, rubs, systolic murmur Pulses: PRESENT: normal dorsalis pedis pul Vascular exam: PRESENT: normal capillary refill GI/Abdominal exam: PRESENT: normal bowel sounds, soft. ABSENT: distended, guarding, mass, organolmegaly, rebound, tenderness Rectal exam: PRESENT: deferred Extremities exam: PRESENT: full ROM. ABSENT: calf tenderness, clubbing, pedal edema Neurological exam: PRESENT: alert, awake, oriented to person, oriented to place , oriented to time, oriented to situation, CN II-XII grossly intact. ABSENT: motor sensory deficit Psychiatric exam: PRESENT: appropriate affect, normal mood. ABSENT: homicidal ideation, suicidal ideation Skin exam: PRESENT: dry, intact, warm. ABSENT: cyanosis, rash Results Laboratory Results: 05/12/16 06:12 05/12/16 06:12 05/11/16 17:30 Clean Catch Midstream Urine Culture - Final Mixed Urogenital Sheyla Impressions: Foot X-Ray 05/10/16 19:21 IMPRESSION: DEGENERATIVE CHANGE ABOVE. NO RADIOGRAPHIC EVIDENCE OF ACUTE INJURY. Ankle X-Ray 05/10/16 22:02 IMPRESSION: TINY BONE FRAGMENT DEEP TO THE LATERAL MALLEOLUS MAY REPRESENT SEQUELA TO ACUTE OR CHRONIC AVULSION TYPE INJURY. CORRELATE WITH SITE OF PAIN AND MECHANISM OF INJURY. ADDITIONAL CHRONIC CHANGES ABOVE. Head CT 05/11/16 14:47 IMPRESSION: MILD CHRONIC CHANGES OF ATROPHY AND MICROVASCULAR ISCHEMIA. NO ACUTE PROCESS. Lumbar Spine X-Ray 05/12/16 12:31 IMPRESSION: Degenerative changes as noted above Assessment & Plan - Diagnosis (1) Right ankle sprain Qualifiers: Involved ligament of ankle: unspecified ligament Is this a current diagnosis for this admission?: Yes (2) Encephalopathy Is this a current diagnosis for this admission?: Yes (3) Hyperglycemia due to type 2 diabetes mellitus Qualifiers: Diabetes mellitus technician terminal and repeater insulin use: unspecified fci insulin use status Qualified Code(s): E11.65 - Type 2 diabetes mellitus with hyperglycemia Is this a current diagnosis for this admission?: Yes (4) Coronary artery disease Qualifiers: Coronary Disease-Associated Artery/Lesion type: [place] artery [place] vs. transplanted heart: [place] heart Associated angina: with unspecified angina Qualified Code(s): I25.119 - Atherosclerotic heart disease of [place] coronary artery with unspecified angina pectoris Is this a current diagnosis for this admission?: Yes (6) Vitamin B12 deficiency Is this a current diagnosis for this admission?: Yes (7) Aortic stenosis Qualifiers: Cardiac valve disease etiology: etiology unspecified Qualified Code( s): I35.0 - Nonrheumatic aortic (valve) stenosis Is this a current diagnosis for this admission?: YesPlan: Mild to moderate on the latest echocardiogram Normal systolic function and diastolic dysfunction - Time Time Spent with patient: Continue to adjust insulin Patient may be discharged to assisted living with physical therapy if it is possible Time Spent with patient: 25-34 minutes
[2016-05-14] MEDS: OXYCODONE-ACETAMINOPHEN 5-325 MG TABLET PO PRN ×4 (04:33→20:13)
[2016-05-14] MEDS: ENOXAPARIN SODIUM INJ 40 MG/0.4 ML DISP.SYRIN SUBCUT SCH (07:44)
[2016-05-14] MEDS: INSULIN GLARGINE,HUM.REC.ANLOG 300 UNIT/3 ML INSULN.PEN SUBCUT SCH ×2 (09:00→21:31)
[2016-05-14] MEDS: DIPHENHYDRAMINE HCL 25 MG CAPSULE PO PRN ×2 (09:49→15:45)
[2016-05-14] MEDS: CYANOCOBALAMIN (VITAMIN B-12) INJ 1000 MCG/1 ML VIAL IM SCH (11:02)
[2016-05-14] MEDS: INSULIN LISPRO 100 UNIT/ML 3 ML VIAL SUBCUT PRN (12:10)
[2016-05-14] MEDS: SIMETHICONE 80 MG TAB.CHEW PO PRN ×2 (14:04→19:46)
--- NOTE | 2016-05-14 17:19 | PDOC PROGRESS REPORT ---
Subjective Progress Note for:: 05/14/16 Subjective:: Reason for visit: Follow-up of right foot pain, encephalopathy, diabetes, B12 deficiency, aortic stenosis Hospital course: Per H&P "LAINA WEAVER is a 70 year old female with known coronary artery disease and PTCA and stent in 2013 With sustained a fall while walking up the stairs today Patient a was brought to the ED and was diagnosed of her ankle fracture Patient was not able to ambulate after the fall and she was extremely confused Had no recollection of what medication she takes; she states that her confusion has been going on now for "a while "it has gotten worse but is now worse to the point that she feels she cannot care for herself She lives alone, has diabetes Patient denies any chest pain shortness of breath, she denies having had a syncopal episode" Patient was admitted to the hospital and underwent an extensive evaluation: x- rays show an old avulsion fracture as the likely source of the patient's right foot pain and she was placed in a walking boot and physical therapy begun; B12 level was found to be quite low and felt to contribute to her encephalopathy, replacement was begun. Her hospital course complicated by what appears to be a adverse drug reaction to Ultram resulting in urticaria. Echocardiogram performed and showed a preserved left ventricular function, 2/4 diastolic dysfunction, moderate aortic stenosis with calculated valve area of 1.4 cm. Subjective: Patient denies chest pain, palpitations, fever, chills, nausea, vomiting, diarrhea. She is tolerating her diet without difficulty. She does complain of short-term memory loss and becomes quite frustrated at this period she continues to complain of sharp, stabbing pain in the right ankle worse with weightbearing and better with elevation and no associated symptoms. ROS: per HPI plus a total of 10 systems reviewed, pertinent positives and negatives noted above, remaining systems negative. Physical Exam Vital Signs: Temp Pulse Resp BP Pulse Ox 98.1 F 88 18 139/78 H 99 05/14/16 11:35 05/14/16 11:35 05/14/16 11:35 05/14/16 11:35 05/14/16 11:35 Intake & Output 05/13/16 05/14/16 05/15/16 06:59 06:59 06:59 Intake Total 677 887 3115 Output Total 1600 550 700 Balance -810 -150 350 Weight 78.2 kg 81.3 kg EXAM GENERAL: NAD; well developed, well nourished; no obese; alert and oriented to person, place, and situation HEENT: normocephalic, atraumatic; no conjunctival injection, no scleral icterus ; oral mucosa moist; RESPIRATORY: no accessory muscle use, no increased WOB, good air entry bilaterally; no wheezes, rales, rhonchi; no inspiratory crackles CARDIO: no JVD; RRR; no systolic murmur; no tachycardia GI: soft; nondistended; normal bowel sounds; no hepato spleno megaly; no rebound, rigidity, guarding VASCULAR: no carotid bruit; no abdominal bruit; no pallor; 2+ radial, DP pulse ; normal capillary refill EXTREMITIES: no calf tender; no palpable cords in calf; no clubbing, cyanosis , pedal edema; Rt foot in walking boot PSYCH: normal affect, normal mood SKIN: warm; moist; no petechiae; no telengectasias; no jaundice; multiple punctate, raised, red nonblanching lesions over her extremities mostly but a few on her trunk, interestingly these are not the areas of itching/pruritus and I see no rash where she points to the most troubling sites; certainly no hives evident. Results Laboratory Results: 05/12/16 06:12 05/12/16 06:12 Impressions: Foot X-Ray 05/10/16 19:21 IMPRESSION: DEGENERATIVE CHANGE ABOVE. NO RADIOGRAPHIC EVIDENCE OF ACUTE INJURY. Ankle X-Ray 05/10/16 22:02 IMPRESSION: TINY BONE FRAGMENT DEEP TO THE LATERAL MALLEOLUS MAY REPRESENT SEQUELA TO ACUTE OR CHRONIC AVULSION TYPE INJURY. CORRELATE WITH SITE OF PAIN AND MECHANISM OF INJURY. ADDITIONAL CHRONIC CHANGES ABOVE. Head CT 05/11/16 14:47 IMPRESSION: MILD CHRONIC CHANGES OF ATROPHY AND MICROVASCULAR ISCHEMIA. NO ACUTE PROCESS. Lumbar Spine X-Ray 05/12/16 12:31 IMPRESSION: Degenerative changes as noted above Status: Imported from PACS Assessment & Plan - Diagnosis (1) Right ankle sprain Qualifiers: Involved ligament of ankle: unspecified ligament Is this a current diagnosis for this admission?: YesPlan: This is her presenting complaint and she has improved or at least stabilized with physical therapy and ankle brace in place. However with her multiple medical problems not the least of which is her short-term memory loss it is felt by the family and the patient that she would be better served with placement in a alf facility for short course of rehabilitation before attempting to return to independent living at home. We are still waiting but offers. (2) Aortic stenosis Qualifiers: Cardiac valve disease etiology: etiology unspecified Qualified Code( s): I35.0 - Nonrheumatic aortic (valve) stenosis Is this a current diagnosis for this admission?: YesPlan: Moderate. Follow up with cardiology as outpatient. Maintain adequate volume status. (3) Encephalopathy Is this a current diagnosis for this admission?: YesPlan: Thought secondary to B12 deficiency. Continue replacement. (4) Hyperglycemia due to type 2 diabetes mellitus Is this a current diagnosis for this admission?: YesPlan: Continue basal bolus insulin (5) Vitamin B12 deficiency Is this a current diagnosis for this admission?: YesPlan: As above (6) CAD (coronary artery disease) Is this a current diagnosis for this admission?: YesPlan: Quiescent - Time Time Spent with patient: 15-24 minutes Anticipated discharge: SNF Within: within 24 hours - Plan Summary Plan Summary: She is medically stable for transfer to rehabilitation center once bed becomes available.
[2016-05-15] MEDS: OXYCODONE-ACETAMINOPHEN 5-325 MG TABLET PO PRN (00:23)
[2016-05-15] MEDS: ENOXAPARIN SODIUM INJ 40 MG/0.4 ML DISP.SYRIN SUBCUT SCH (08:12)
[2016-05-15] MEDS: INSULIN GLARGINE,HUM.REC.ANLOG 300 UNIT/3 ML INSULN.PEN SUBCUT SCH ×2 (09:51→22:28)
[2016-05-15] MEDS: VENLAFAXINE HCL 75 MG CAP.SR.24H PO SCH (09:51)
[2016-05-15] MEDS: MORPHINE SULFATE 10 MG/ML INJ IV PRN ×2 (11:52→20:47)
[2016-05-15] MEDS: CYANOCOBALAMIN (VITAMIN B-12) INJ 1000 MCG/1 ML VIAL IM SCH (11:54)
[2016-05-15] MEDS ORDERED: ONDANSETRON HCL INJ/PF 4 MG/2 ML SDV IV PRN (13:06)
[2016-05-15] MEDS ORDERED: POLYETHYLENE GLYCOL 3350 POWDER 17 GM/1 PACKET PO PRN (13:07)
[2016-05-15] MEDS ORDERED: BISACODYL 10 MG SUPP.RECT PR ONE (14:00)
[2016-05-15] MEDS: INSULIN LISPRO 100 UNIT/ML 3 ML VIAL SUBCUT PRN ×2 (14:07→17:12)
[2016-05-15] MEDS: SIMETHICONE 80 MG TAB.CHEW PO PRN (17:12)
[2016-05-15] MEDS: DOCUSATE SODIUM 100 MG CAPSULE PO SCH (17:12)
--- NOTE | 2016-05-15 17:24 | PDOC PROGRESS REPORT ---
Subjective Progress Note for:: 05/15/16 Subjective:: Reason for visit: Follow-up of right foot pain, encephalopathy, diabetes, B12 deficiency, aortic stenosis Hospital course: Per H&P "LAINA WEAVER is a 70 year old female with known coronary artery disease and PTCA and stent in 2013 With sustained a fall while walking up the stairs today Patient a was brought to the ED and was diagnosed of her ankle fracture Patient was not able to ambulate after the fall and she was extremely confused Had no recollection of what medication she takes; she states that her confusion has been going on now for "a while "it has gotten worse but is now worse to the point that she feels she cannot care for herself She lives alone, has diabetes Patient denies any chest pain shortness of breath, she denies having had a syncopal episode" Patient was admitted to the hospital and underwent an extensive evaluation: x- rays show an old avulsion fracture as the likely source of the patient's right foot pain and she was placed in a walking boot and physical therapy begun; B12 level was found to be quite low and felt to contribute to her encephalopathy, replacement was begun. Her hospital course complicated by what appears to be a adverse drug reaction to Ultram resulting in urticaria. Echocardiogram performed and showed a preserved left ventricular function, 2/4 diastolic dysfunction, moderate aortic stenosis with calculated valve area of 1.4 cm. Subjective: She continues to complain of worsening short-term memory loss and becomes frustrated and tearful. she also continues to complain of sharp, stabbing pain in the right ankle worse with weightbearing and better with elevation and no associated symptoms. Nursing reports upon awakening this morning she was more confused and they had seen her couple of days ago, it is a different nurse caring for her today. On my evaluation, she remembers meeting me but can't remember my name though she does know I am a physician and she is at hospital she cannot remember its name either. She has no recollection of her fall or ankle injury. ROS: per HPI plus a total of 10 systems reviewed, pertinent positives and negatives noted above, remaining systems negative. Physical Exam Vital Signs: Temp Pulse Resp BP Pulse Ox 98.2 F 85 20 123/65 98 05/15/16 12:00 05/15/16 12:00 05/15/16 12:00 05/15/16 12:00 05/15/16 12:00 Intake & Output 05/14/16 05/15/16 05/16/16 06:59 06:59 06:59 Intake Total 400 1650 Output Total 550 1150 Balance -150 500 Weight 81.3 kg 82.2 kg EXAM GENERAL: NAD; well developed, well nourished; no obese; alert and oriented to person, place, and situation HEENT: normocephalic, atraumatic; no conjunctival injection, no scleral icterus ; oral mucosa moist; RESPIRATORY: no accessory muscle use, no increased WOB, good air entry bilaterally; no wheezes, rales, rhonchi; no inspiratory crackles CARDIO: no JVD; RRR; no systolic murmur; no tachycardia GI: soft; nondistended; normal bowel sounds; no rebound, rigidity, guarding; nontender VASCULAR: no carotid bruit; no abdominal bruit; no pallor; 2+ radial, DP pulse ; normal capillary refill EXTREMITIES: no calf tender; no palpable cords in calf; no clubbing, cyanosis , pedal edema; Rt foot in walking boot PSYCH: normal affect, normal mood SKIN: warm; moist; no petechiae; no telengectasias; no jaundice; rash has resolved Results Laboratory Results: 05/12/16 06:12 05/12/16 06:12 Assessment & Plan - Diagnosis (1) Right ankle sprain Qualifiers: Involved ligament of ankle: unspecified ligament Is this a current diagnosis for this admission?: YesPlan: This is her presenting complaint and she has improved or at least stabilized with physical therapy and ankle brace in place. However with her multiple medical problems not the least of which is her short-term memory loss it is felt by the family and the patient that she would be better served with placement in a prison facility for short course of rehabilitation before attempting to return to independent living at home. We are still waiting but offers. pt has bed [facility] from [facility]. (2) Aortic stenosis Qualifiers: Cardiac valve disease etiology: etiology unspecified Qualified Code( s): I35.0 - Nonrheumatic aortic (valve) stenosis Is this a current diagnosis for this admission?: YesPlan: Moderate. Follow up with cardiology as outpatient. Maintain adequate volume status. (3) Encephalopathy Is this a current diagnosis for this admission?: YesPlan: Thought secondary to B12 deficiency. Continue replacement. maybe worsened by benadryl use for pruritus. resume her home dose of effexor xr. (4) Hyperglycemia due to type 2 diabetes mellitus Is this a current diagnosis for this admission?: Yes (5) Vitamin B12 deficiency Is this a current diagnosis for this admission?: Yes (6) CAD (coronary artery disease) Is this a current diagnosis for this admission?: Yes - Time Time Spent with patient: 25-34 minutes
[2016-05-16] MEDS: SIMETHICONE 80 MG TAB.CHEW PO PRN (00:36)
[2016-05-16] MEDS: ENOXAPARIN SODIUM INJ 40 MG/0.4 ML DISP.SYRIN SUBCUT SCH (08:10)
[2016-05-16] MEDS: INSULIN GLARGINE,HUM.REC.ANLOG 300 UNIT/3 ML INSULN.PEN SUBCUT SCH (10:02)
[2016-05-16] MEDS: DOCUSATE SODIUM 100 MG CAPSULE PO SCH (10:03)
[2016-05-16] MEDS: VENLAFAXINE HCL 75 MG CAP.SR.24H PO SCH (10:04)
--- NOTE | 2016-05-16 11:29 | PDOC TRANSFER SUMMARY ---
General - Admit/Disc Date/PCP Admission Date/Primary Care Provider: 05/11/16 14:37 Discharge Date: 05/16/16 - Discharge Diagnosis (1) Right ankle sprain Is this a current diagnosis for this admission?: YesSummary: continue walking boot and f/u with Dr Del Rio in 2 weeks for further recommendations. (2) Aortic stenosis Is this a current diagnosis for this admission?: YesSummary: expectant management only at this point. maintain adequate hydration and avoid diuretics for BP control if possible. (3) Encephalopathy Is this a current diagnosis for this admission?: YesSummary: Thought secondary to B12 deficiency. Continue oral replacement. possibly also worsened by benadryl use for pruritus, recommend avoiding its use if possible. resumed her effexor xr but at a much lower dose than she reported using at home. (4) Hyperglycemia due to type 2 diabetes mellitus Is this a current diagnosis for this admission?: YesSummary: continue basal/bolus regimen with qAC/HS blood sugars. (5) Vitamin B12 deficiency Is this a current diagnosis for this admission?: YesSummary: continue oral replacement. (6) CAD (coronary artery disease) Is this a current diagnosis for this admission?: YesSummary: review of her records indicate prior hx of AMI with ASCVD and bare metal stent placed in 2013. she then suffered a massive GIB due to ulcer at gastric anastomosis site in 2014 and required stopping anticoagulation at that time. it is not clear to me why she is no longer taking usual regimen so will resume statin, beta jaleesa and low dose ASA at this time. defer to her primary rock contractor, DR Roberts for follow up and further rec's. - Additional Information Resuscitation Status: Do Not Resuscitate Discharge Diet: Diabetic Discharge Activity: Slowly Increase Activity, Supervised Activity Home Medications: Docusate Sodium [Colace 100 mg Capsule] 100 mg PO BID capsule 05/16/16 Insulin Glargine,Hum.rec.anlog [Lantus Insulin 100 Unit/mL] 30 unit SUBCUT Q12 insuln.pen 05/16/16 Insulin Lispro [Humalog Insulin (Lispro) 100 unit/mL] 0 - 12 unit SUBCUT ACHSP PRN unit 05/16/16 Morphine Sulfate [Morphine Ir 15 Mg Tablet] 7.5 mg PO Q6HP PRN #20 tablet Polyethylene Glycol 3350 [Miralax Powder 17 gm/Packet] 17 gm PO DAILYP PRN powd.pack 05/16/16 Simethicone [Mylicon 80 mg Chewable Tablet] 80 mg PO QIDP PRN tab.chew Venlafaxine HCl ER [Effexor Xr 75 mg Cap.sr] 75 mg PO DAILY cap.sr.24h History of Present Illness Admission Date/PCP: 05/11/16 14:37 Patient complains of: ankle pain History of Present Illness: Per H&P "LAINA WEAVER is a 70 year old female with known coronary artery disease and PTCA and stent in 2013 With sustained a fall while walking up the stairs today Patient a was brought to the ED and was diagnosed of her ankle fracture Patient was not able to ambulate after the fall and she was extremely confused Had no recollection of what medication she takes; she states that her confusion has been going on now for "a while "it has gotten worse but is now worse to the point that she feels she cannot care for herself She lives alone, has diabetes Patient denies any chest pain shortness of breath, she denies having had a syncopal episode" Hospital Course Hospital Course: Patient was admitted to the hospital and underwent an extensive evaluation: x- rays show an old avulsion fracture as the likely source of the patient's right foot pain and she was placed in a walking boot and physical therapy begun; B12 level was found to be quite low and felt to contribute to her encephalopathy, replacement was begun. Her hospital course complicated by what appears to be a adverse drug reaction to Ultram resulting in urticaria. Echocardiogram performed and showed a preserved left ventricular function, 2/4 diastolic dysfunction, moderate aortic stenosis with calculated valve area of 1.4 cm. She continued to complain of worsening short-term memory loss and becomes frustrated and tearful. she also continues to complain of sharp, stabbing pain in the right ankle worse with weightbearing and better with elevation and no associated symptoms. Nursing reports upon awakening yesterday she was more confused and they had seen her couple of days ago, it is a different nurse caring for her today. On my evaluation, she remembers meeting me but can't remember my name though she does know I am a physician and she is at hospital she cannot remember its name either. She has no recollection of her fall or ankle injury. I stopped her benadryl being used to treat urticaria related to ultram usage with good results this morning. review of the old record indicates a prior hx of dementia, unknown type but given her history and ct head findings it is likely vascular dementia complicating her condition. as of this morning she is more cooperative, more alert and seems ready for discharge. we have a bed offer [facility] and she is stable for transfer at this time. she is to f/u with dr del rio in 2 wks for further management of her Rt ankle strain. she should f/u with dr roberts, her primary rock contractor regarding treatment of her Aortic stenosis, BP and ASCVD. Physical Exam Vital Signs: Temp Pulse Resp BP Pulse Ox 98.1 F 87 14 136/68 H 96 05/16/16 07:45 05/16/16 07:45 05/16/16 07:45 05/16/16 07:45 05/16/16 07:45 Intake & Output 05/15/16 05/16/16 05/17/16 06:59 06:59 06:59 Intake Total 1650 650 Output Total 1150 1400 Balance 500 -750 Weight 82.2 kg 80.1 kg EXAM GENERAL: NAD; well developed, well nourished; no obese; alert and oriented to person, place HEENT: normocephalic, atraumatic; no conjunctival injection, no scleral icterus ; oral mucosa moist; RESPIRATORY: no accessory muscle use, no increased WOB, good air entry bilaterally; no wheezes, rales, rhonchi; no inspiratory crackles CARDIO: no JVD; RRR; soft decrescendo systolic murmur; no tachycardia GI: soft; nondistended; normal bowel sounds; no rebound, rigidity, guarding; nontender VASCULAR: no carotid bruit; no abdominal bruit; no pallor; 2+ radial, DP pulse ; normal capillary refill EXTREMITIES: no calf tender; no palpable cords in calf; no clubbing, cyanosis , pedal edema; Rt foot in walking boot, achilles is tender to palpation resulting in limited ROM PSYCH: normal affect, normal mood SKIN: warm; moist; no petechiae; no telengectasias; no jaundice; rash has resolved Results Laboratory Results: 05/12/16 06:12 03/19/17 06:12 Impressions: Foot X-Ray 05/10/16 19:21 IMPRESSION: DEGENERATIVE CHANGE ABOVE. NO RADIOGRAPHIC EVIDENCE OF ACUTE INJURY. Ankle X-Ray 05/10/16 22:02 IMPRESSION: TINY BONE FRAGMENT DEEP TO THE LATERAL MALLEOLUS MAY REPRESENT SEQUELA TO ACUTE OR CHRONIC AVULSION TYPE INJURY. CORRELATE WITH SITE OF PAIN AND MECHANISM OF INJURY. ADDITIONAL CHRONIC CHANGES ABOVE. Head CT 05/11/16 14:47 IMPRESSION: MILD CHRONIC CHANGES OF ATROPHY AND MICROVASCULAR ISCHEMIA. NO ACUTE PROCESS. Lumbar Spine X-Ray 05/12/16 12:31 IMPRESSION: Degenerative changes as noted above Transfer Plan - Disposition Transfer Plan: ok to transfer to [facility] for ongoing rehab. Qualifiers PATEINT BEING DISCHARGED WITH ANY OF THE FOLLOWING DIAGNOSIS?: No VTE patient discharged on overlapping Therapy?: No Reason(s) for not prescribing Overlap Therapy:: Not indicated
[2016-05-16] MEDS: CYANOCOBALAMIN (VITAMIN B-12) INJ 1000 MCG/1 ML VIAL IM SCH (12:04)
[2016-05-16] MEDS: INSULIN LISPRO 100 UNIT/ML 3 ML VIAL SUBCUT PRN (12:04)
[2016-05-16 17:07] VITALS: BP 142/61
== END 2016-05-16 17:07 | DRG 637 ==
LOC: ER 18:29 → OBSVTOIN 05-11 14:37 → EH 05-11 14:37 → UNDOADMOB 05-11 15:05 → EH 05-11 15:05 → 2N 05-11 16:56 → 4S 05-13 17:15
PROVIDERS: ADMIT Emergency Medicine; ATTEND Emergency Medicine
DX: E11.65 Type 2 diabetes mellitus with hyperglycemia (principal); G93.40 Encephalopathy, unspecified; S96.911A Strain of unspecified muscle and tendon at ankle and foot level, right foot, initial encounter; W10.9XXA Fall (on) (from) unspecified stairs and steps, initial encounter; I35.0 Nonrheumatic aortic (valve) stenosis; E53.8 Deficiency of other specified B group vitamins; I25.10 Atherosclerotic heart disease of native coronary artery without angina pectoris; E78.5 Hyperlipidemia, unspecified; I10 Essential (primary) hypertension; K21.9 Gastro-esophageal reflux disease without esophagitis; K44.9 Diaphragmatic hernia without obstruction or gangrene; M19.90 Unspecified osteoarthritis, unspecified site; F01.50 Vascular dementia, unspecified severity, without behavioral disturbance, psychotic disturbance, mood disturbance, and anxiety; F32.9 Major depressive disorder, single episode, unspecified; D64.9 Anemia, unspecified; I25.119 Atherosclerotic heart disease of native coronary artery with unspecified angina pectoris; L27.0 Generalized skin eruption due to drugs and medicaments taken internally; T40.4X5A Adverse effect of other synthetic narcotics, initial encounter; R41.3 Other amnesia; Z60.2 Problems related to living alone; I25.2 Old myocardial infarction; Z66 Do not resuscitate; Z95.1 Presence of aortocoronary bypass graft; Z95.5 Presence of coronary angioplasty implant and graft; Z79.899 Other long term (current) drug therapy; Z79.4 Long term (current) use of insulin; Z98.84 Bariatric surgery status; Z90.710 Acquired absence of both cervix and uterus; Z88.3 Allergy status to other anti-infective agents; Z88.8 Allergy status to other drugs, medicaments and biological substances; Z82.49 Family history of ischemic heart disease and other diseases of the circulatory system; Z83.3 Family history of diabetes mellitus; Z82.3 Family history of stroke
CPT/HCPCS: 36415; 70450; 72100; 80053; 80061; 81001; 82607; 82746; 82962; 83036; 84443; 85025; 87086; 93306; 96361; 96372; 96374; 96376; 99285; G8978-GP; G8979-GP; J1650; J1815; J2270; J2405; J3420; J3490; J7030; L4386

== ENCOUNTER 2016-06-01 00:27 | Emergency (ER) | payer MEDICARE ==
[2016-06-01] MEDS ORDERED: OXYCODONE-ACETAMINOPHEN 5-325 MG TABLET PO ONE (03:24)
[2016-06-01 04:02] LABS: ABSOLUTE BASOPHILS # (AUTO) 0.1 10^3/uL (0.0-0.2); ABSOLUTE EOSINOPHILS # (AUTO) 0.2 10^3/uL (0.0-0.6); ABSOLUTE LYMPHOCYTES (AUTO) 2.4 10^3/uL (0.5-4.7); ABSOLUTE MONOCYTES (AUTO) 0.6 10^3/uL (0.1-1.4); ABSOLUTE NEUT (AUTO) 3.3 10^3/uL (1.7-8.2); BASOPHILS % (AUTO) 1.1 % (0-2); EOSINOPHILS % (AUTO) 3.2 % (0-6); HEMATOCRIT 35.9 % (36.0-47.0); HEMOGLOBIN 11.8 g/dL (12.0-15.5); HGB HCT DIFFERENCE -0.5; LYMPHOCYTES % (AUTO) 36.5 % (13-45); MEAN CORPUSCULAR HEMOGLOBIN 27.1 pg (27.0-33.4); MEAN CORPUSCULAR VOLUME 82 fl (80-97); MONOCYTES % (AUTO) 9.3 % (3-13); RED BLOOD COUNT 4.36 10^6/uL (3.72-5.28); RED CELL DISTRIBUTION WIDTH 15.3 % (11.5-14.0); SEGMENTED NEUTROPHILS % (AUTO) 49.9 % (42-78); WHITE BLOOD COUNT 6.7 10^3/uL (4.0-10.5)
--- NOTE | 2016-06-01 04:09 | ER Document Report ---
ED General - General Chief Complaint: Wound Infection Stated Complaint: POSSIBLE INFECTED WOUND/RIGHT FOOT Mode of Arrival: Medic Information source: Patient, Relative - son/daughter in law Notes: Patient presents to the emergency department from [facility] with complaints of pain to her right foot. Son and [id number] report patient fell several weeks back and fractured her foot. She was treated here in the emergency department admitted for 4 days and then transferred to [facility]. When she was transferred a boot was placed on her foot. Daughter-in- law reports that she noticed skin breakdown upon arrival to [facility] after she had been there for a few weeks. She reports mother was c/o foot pain from the boot. Patient was evaluated by Dr Del Rio two days ago and referred to wound care. . Denies f/v/d. Daughter in law is very upset, reported she didn't want to come to this hospital she wanted her to go to [facility] since mothers providers all at [facility]. TRAVEL OUTSIDE OF THE [place] IN LAST 30 DAYS: No - HPI Onset: Other Onset/Duration: Persistent Severity: Moderate Pain Level: 3 Associated symptoms: None Exacerbated by: Movement, Walking Relieved by: Denies Similar symptoms previously: Yes Recently seen / treated by doctor: Yes - Related Data Allergies/Adverse Reactions: atropine sulfate [From Lomotil] Allergy (Verified 05/10/16 19:18) Unknown diphenoxylate HCl [From Lomotil] Allergy (Verified 05/10/16 19:18) Unknown NSAIDS (Non-Steroidal Anti-Inflamma [Nsaids] Allergy (Verified 05/10/16 19:18) Unknown pseudoephedrine HCl [From Sudafed] Allergy (Verified 05/10/16 19:18) Unknown Past Medical History - General Information source: Patient - Social History Smoking Status: Unknown if Ever Smoked Cigarette use (# per day): No Frequency of alcohol use: None Drug Abuse: None Lives with: Other - [facility] Family History: CAD, CVA, DM Patient has suicidal ideation: No Patient has homicidal ideation: No - Past Medical History Cardiac Medical History: Reports: Hx Coronary Artery Disease, Hx Heart Attack - x3 since january, Hx Hypercholesterolemia, Hx Hypertension Pulmonary Medical History: Denies: Hx Tuberculosis Neurological Medical History: Reports: Hx Cerebrovascular Accident. Denies: Hx Seizures Endocrine Medical History: Reports: Hx Diabetes Mellitus Type 2 Renal/ Medical History: Denies: Hx Peritoneal Dialysis GI Medical History: Reports: Hx Gastroesophageal Reflux Disease - hernia, Hx Ulcer - Moving from a prior gastric bypass anastomotic ulcer. Musculoskeltal Medical History: Reports Hx Arthritis Psychiatric Medical History: Reports: Hx Dementia, Hx Depression Past Surgical History: Reports: Hx Cardiac Catheterization, Hx Cardiac Surgery - CABG x3 twice, Hx Coronary Stent - x3 due to stent occlusion, Hx Gastric Bypass Surgery, Hx Hysterectomy, Hx Pancreatic Surgery, Hx Tonsillectomy - Immunizations Hx Diphtheria, Pertussis, Tetanus Vaccination: - unknown Hx Pneumococcal Vaccination: 02/03/13 Review of Systems - Review of Systems Notes: Review HPI for review of systems., All other systems negative Physical Exam - Vital signs Vitals: Temp Pulse Resp BP Pulse Ox 98.6 F 85 18 117/80 95 06/01/16 00:35 06/01/16 00:35 06/01/16 00:35 06/01/16 00:35 06/01/16 00:35 - Notes Notes: PHYSICAL EXAMINATION: GENERAL: nontoxic looking HEAD: Atraumatic, normocephalic. EYES: Pupils equal round extraocular movements intact, sclera anicteric, conjunctiva are normal. ENT: nares patent, Moist mucous membranes. NECK: Normal range of motion, supple without lymphadenopathy LUNGS: CTAB and equal. No wheezes rales or rhonchi. HEART: Regular rate and rhythm without murmurs ABDOMEN: Soft, no tenderness. No guarding, no rebound EXTREMITIES: Normal range of motion, no pitting edema. No cyanosis. NEUROLOGICAL: Cranial nerves grossly intact. Normal sensory/motor PSYCH: Normal mood, normal affect. SKIN: Warm, Dry, normal turgor, stage III Decubitus ~ 2cm x 1 cm irregular noted to dorsal right foot surrounded by erythema, some warmth. Course - Re-evaluation Re-evalutation: 06/01/16 05:40 pt resting quietly, no c/o, answers all questions appropriately. 06/01/16 06:48 Wound culture pending, Foot x-ray negative no osteomyelitis. Labs unremarkable. Patient sleeping, aroused easily and instructed on plan to transfer her back to [facility]. She seemed a little confused but per her history of dementia and review of past medical record I expected that. Family was contacted via phone with results and plan to return patient to [facility]. [id number] is very upset reports she does not want her sent back to [facility]. She wants the patient transferred to [facility] or another facility. She forbids us to transfer mother to [facility]. I explained to daughter in law that [facility] is equipped to treat her wound and give po clindamycin. I explained to her that she has an appointment with wound care on June 06. I instructed son and daughter in law that we cannot just transfer a patient to another facility. I also suggested that family have the option to bead picker the patient and care for her at home until they can arrange care at another facility. I discussed the case with Dr. Singleton and he agreed with the plan. He also suggested a social security assessor consult. This was discussed with family by myself and Dr Singleton. 06/01/16 07:00 Dr Singleton spent over 15 minutes on the phone explaining care and options to patients family. A social security assessor consult has been place. - Vital Signs Vital signs: Temp Pulse Resp BP Pulse Ox 98.1 F 85 18 121/65 97 06/01/16 06:55 06/01/16 06:55 06/01/16 06:55 06/01/16 06:55 06/01/16 06:55 - Laboratory Result Diagrams: 06/01/16 03:47 06/01/16 05:20 Laboratory results interpreted by me: 06/01/16 06/01/16 06/01/16 03:47 03:47 05:20 Hgb 11.8 L Hct 35.9 L RDW 15.3 H Sodium 147.1 H Chloride 110 H AST 10 L Albumin 3.3 L Urine Glucose (UA) >=500 H Ur Leukocyte Esterase TRACE H Urine Ascorbic Acid 40 H - Diagnostic Test Radiology reviewed: Image reviewed, Reports reviewed - RAD/ FOOT RIGHT COMPLETE IMPRESSION: No plain film evidence for bony involvement by osteomyelitis. Other findings as noted above. Discharge - Discharge Clinical Impression: Decubitus ulcer of left foot Qualifiers: Pressure ulcer stage: stage 3 Qualified Code(s): L89.893 - Pressure ulcer of other site, stage 3 Condition: Stable Disposition: HOME, SELF-CARE Instructions: Soap Cleansing ([facility]), Clindamycin ([facility]) Additional Instructions: *You have been evaluated for foot pain, decubitus ulcer *Take medication as prescribed, keep your foot clean and dressed *Change dressing every 7 days, allevagen is dated and due to be changed in 7 days. Please make family aware of the change in dressing. *A rn patient services consult has been ordered and will follow up regarding patients care. *Follow up with with wound care as scheduled Friday. *Follow up with your primary care provider within 3 days *Return to ED for worsening condition, changes, needs, fever, increased pain Prescriptions: Clindamycin HCl [Cleocin 300 mg Capsule] 300 mg PO TID #15 capsule
[2016-06-01 05:04] LABS: APPEARANCE,URINE CLEAR; BILIRUBIN,URINE NEGATIVE (NEGATIVE); GLUCOSE, URINE >=500 mg/dL (NEGATIVE); KETONES,URINE NEGATIVE (NEGATIVE); LEUKOCYTE ESTERASE,URINE TRACE (NEGATIVE); NITRITE,URINE NEGATIVE (NEGATIVE); PROTEIN,URINE NEGATIVE (NEGATIVE); URINE SPECIFIC GRAVITY 1.017; UROBILINOGEN,URINE NEGATIVE mg/dL (<2.0)
[2016-06-01 06:18] VITALS: BP 121/65
[2016-06-01 06:21] LABS: ALANINE AMINOTRANSFERASE 25 U/L (9-52); ALBUMIN 3.3 g/dL (3.5-5.0); ALKALINE PHOSPHATASE 126 U/L (38-126); ANION GAP 12 (5-19); ASPARTATE AMINO TRANSFERASE 10 U/L (14-36); BILIRUBIN,DIRECT 0.2 mg/dL (0.0-0.4); BILIRUBIN,TOTAL 0.3 mg/dL (0.2-1.3); BLOOD UREA NITROGEN 19 mg/dL (7-20); CALCIUM 9.9 mg/dL (8.4-10.2); CARBON DIOXIDE 25 mmol/L (22-30); CHLORIDE 110 mmol/L (98-107); GLUCOSE 96 mg/dL (75-110); POTASSIUM 4.3 mmol/L (3.6-5.0); SODIUM 147.1 mmol/L (137-145); TOTAL PROTEIN 6.5 g/dL (6.3-8.2)
[2016-06-01] MEDS ORDERED: CLINDAMYCIN HCL 150 MG CAPSULE PO ONE (06:25)
== END 2016-06-01 07:12 | disposition home or self-care (01) ==
LOC: ER 00:27
DX: L89.893 Pressure ulcer of other site, stage 3 (principal); E11.9 Type 2 diabetes mellitus without complications
CPT/HCPCS: 99283; 36415; 87040; 87070; 87205; 85025; 87077; 80053; 81001; 87186; 73630; A9270 ×2

== ENCOUNTER → 2016-06-07 | Outpatient (CLI) | payer MEDICARE | LOC: CRS 18:08 | PROVIDERS: ATTEND Surgery | DX: L97.512 Non-pressure chronic ulcer of other part of right foot with fat layer exposed (principal) | CPT/HCPCS: 87070; 87077; 87186; 87205 ==

== ENCOUNTER → 2016-07-03 | Outpatient (CLI) | payer MEDICARE, OTHER ==
--- NOTE | 2016-07-03 16:10 | XCELERA REPORT ---
[address] [address] Lower Extremity Arterial Evaluation Name: LAINA WEAVER Age: 70 yrs Gender: Female : 1945 Patient Status: Outpatient Patient Location: Study Date: 07/03/2016 03:03 PM Procedure: A color flow and duplex scan of the lower extremity arteries was performed bilaterally with velocity and waveform anaylsis. Ankle brachial indicies performed. Reason For Study: ULCER Ordering Physician: RIGOBERTO STANFORD Performed By: Raymond Disla Measurements and Calculations Right Left HOUSE MANAGER PSV 147.3 142.2 cm/sec Prox PFA PSV -135.1 -115.7 cm/sec Dist SFA PSV -150.1 -97.7 cm/sec Dist Pop A PSV 102.0 133.6 cm/sec Dist KELSY PSV 67.8 69.5 cm/sec Dist CLOTH SPREADER PSV 120.1 89.9 cm/sec Tulio Pedis PSV 284.4 83.8 cm/sec Right Side Arterial Evaluation Normal velocity and biphasic waveforms noted from the Common Femoral artery to the infrageniculate vessels. Stenosis in the Dorsalis Pedis artery. 0-19% stenosis at the inflow with sequential disease . Ankle Brachial index is 1.04. Non compressible Posterior Tibial artery. Left Side Arterial Evaluation Normal velocity and triphasic waveforms noted in the Common Femoral artery. Biphasic from the Femoral artery to the infrageniculate vessels. 0-19% stenosis at the Femoral artery. Ankle Brachial index is 1.26. Non compressible at the Dorsalis Pedis. Interpretation Summary Mild hemodynamically significant lesions in the bilateral lower extremities, on duplex imaging, at rest. : RIGOBERTO STANFORD > Rigoberto Stanford
== END ==
LOC: SP 14:43
PROVIDERS: ATTEND Surgery
DX: L97.512 Non-pressure chronic ulcer of other part of right foot with fat layer exposed (principal)
CPT/HCPCS: 93925

== ENCOUNTER 2017-04-09 07:19 | Day surgery (SDC) | payer MEDICARE, MEDICAID ==
[~2017-04-09 07:19] MED LIST: KETOROLAC TROMETHAMINE 0.45% 4 DROP/0.4 ML DROPERETTE OS PRN
[2017-04-09] MEDS: CYCLOPENTOLATE 0.2%/PHENYLEPHRINE 1% OPH SOLN 2 ML OS PRN ×3 (07:46→08:05)
[2017-04-09] MEDS: TROPICAMIDE 1% OPH SOLN 3 ML OS PRN ×3 (07:46→08:05)
[2017-04-09] MEDS: TETRACAINE HCL 0.5% OPH SOLN 0.6 ML DROPERETTE OS PRN ×3 (07:46→08:08)
[2017-04-09] MEDS: BESIFLOXACIN HCL 0.6% OPH SUSP 5 ML BOTTLE OS PRN ×3 (07:47→08:32)
[2017-04-09] MEDS ORDERED: FENTANYL CITRATE INJ/PF 100 MCG/2 ML AMPUL ONE (07:57)
[2017-04-09] MEDS ORDERED: MIDAZOLAM 2 MG/2 ML INJ ONE (07:57)
[2017-04-09] MEDS ORDERED: EPINEPHRINE INJ/PF 1 MG/1 ML AMPULE ONE (07:58)
[2017-04-09] MEDS ORDERED: CHONDR SU A NA/HYALUR INTRAOC KIT (SURGICARE) ONE (07:58)
[2017-04-09] MEDS ORDERED: TOBRAMYCIN SULFATE/DEXAMETH OPH OINTMENT 3.5 GM ONE (07:58)
[2017-04-09] MEDS ORDERED: LIDOCAINE 1% INJ-PF (10 MG/ML) 30 ML SDV ONE (07:58)
== END 2017-04-09 09:18 | disposition home or self-care (01) ==
LOC: SC 07:19
PROVIDERS: ATTEND Ophthalmology
PROC: 08RK3JZ Replacement of Left Lens with Synthetic Substitute, Percutaneous Approach (ICD-10-PCS; principal; 2017-04-09 08:15)
DX: H25.12 Age-related nuclear cataract, left eye (principal); M19.90 Unspecified osteoarthritis, unspecified site; I25.10 Atherosclerotic heart disease of native coronary artery without angina pectoris; E11.9 Type 2 diabetes mellitus without complications; I10 Essential (primary) hypertension; K21.9 Gastro-esophageal reflux disease without esophagitis; E78.00 Pure hypercholesterolemia, unspecified; D64.9 Anemia, unspecified; I24.1 Dressler's syndrome; G89.29 Other chronic pain; Z79.4 Long term (current) use of insulin; Z79.84 Long term (current) use of oral hypoglycemic drugs; Z79.899 Other long term (current) drug therapy; Z88.8 Allergy status to other drugs, medicaments and biological substances
CPT/HCPCS: 82962; 66984; V2630; J2250; J3490 ×3; J0171; J3010; 142

== ENCOUNTER 2017-04-23 07:00 | Day surgery (SDC) | payer MEDICARE, MEDICAID ==
[~2017-04-23 07:00] MED LIST changes: +KETOROLAC TROMETHAMINE 0.45% 4 DROP/0.4 ML DROPERETTE OD PRN; -KETOROLAC TROMETHAMINE 0.45% 4 DROP/0.4 ML DROPERETTE OS PRN
[2017-04-23] MEDS ORDERED: CHONDR SU A NA/HYALUR INTRAOC KIT (SURGICARE) ONE (07:17)
[2017-04-23] MEDS ORDERED: EPINEPHRINE INJ/PF 1 MG/1 ML AMPULE ONE (07:17)
[2017-04-23] MEDS ORDERED: LIDOCAINE 1% INJ-PF (10 MG/ML) 30 ML SDV ONE (07:17)
[2017-04-23] MEDS ORDERED: TOBRAMYCIN SULFATE/DEXAMETH OPH OINTMENT 3.5 GM ONE (07:17)
[2017-04-23] MEDS: BESIFLOXACIN HCL 0.6% OPH SUSP 5 ML BOTTLE OD PRN ×4 (07:56→08:36)
[2017-04-23] MEDS: TETRACAINE HCL 0.5% OPH SOLN 0.6 ML DROPERETTE OD PRN ×3 (07:56→08:17)
[2017-04-23] MEDS: CYCLOPENTOLATE 0.2%/PHENYLEPHRINE 1% OPH SOLN 2 ML OD PRN ×3 (07:56→08:15)
[2017-04-23] MEDS: TROPICAMIDE 1% OPH SOLN 3 ML OD PRN ×3 (07:56→08:15)
[2017-04-23] MEDS ORDERED: MICROFIBRILLAR COLLAGEN 1 GM PACK ONE (07:59)
[2017-04-23] MEDS ORDERED: ONDANSETRON HCL INJ/PF 4 MG/2 ML SDV ONE (07:59)
[2017-04-23] MEDS ORDERED: FENTANYL CITRATE INJ/PF 100 MCG/2 ML AMPUL ONE (07:59)
[2017-04-23] MEDS ORDERED: MIDAZOLAM 2 MG/2 ML INJ ONE (08:00)
== END 2017-04-23 09:31 ==
LOC: SC 07:00
PROVIDERS: ATTEND Ophthalmology
PROC: 08RJ3JZ Replacement of Right Lens with Synthetic Substitute, Percutaneous Approach (ICD-10-PCS; principal; 2017-04-23 08:15)
DX: H25.11 Age-related nuclear cataract, right eye (principal); Z98.42 Cataract extraction status, left eye; M19.90 Unspecified osteoarthritis, unspecified site; I25.10 Atherosclerotic heart disease of native coronary artery without angina pectoris; E11.9 Type 2 diabetes mellitus without complications; I10 Essential (primary) hypertension; D64.9 Anemia, unspecified; Z79.899 Other long term (current) drug therapy; Z79.84 Long term (current) use of oral hypoglycemic drugs; Z79.4 Long term (current) use of insulin; Z88.8 Allergy status to other drugs, medicaments and biological substances; Z88.6 Allergy status to analgesic agent; Z87.891 Personal history of nicotine dependence
CPT/HCPCS: 82962; 66984; V2630; J2250; J3490 ×3; A9270; J0171; J2405; 142; J3010

== ENCOUNTER 2018-03-31 18:09 | Emergency (ER) | payer MEDICARE, MEDICAID ==
[2018-03-31 19:00] LABS: APPEARANCE,URINE CLEAR; BILIRUBIN,URINE NEGATIVE (NEGATIVE); COLOR,URINE STRAW; GLUCOSE, URINE NEGATIVE (NEGATIVE); KETONES,URINE NEGATIVE (NEGATIVE); LEUKOCYTE ESTERASE,URINE SMALL (NEGATIVE); NITRITE,URINE NEGATIVE (NEGATIVE); PROTEIN,URINE NEGATIVE (NEGATIVE); URINE SPECIFIC GRAVITY 1.008; UROBILINOGEN,URINE NEGATIVE mg/dL (<2.0)
[2018-03-31 19:04] LABS: ABSOLUTE BASOPHILS # (AUTO) 0.1 10^3/uL (0.0-0.2); ABSOLUTE EOSINOPHILS # (AUTO) 0.3 10^3/uL (0.0-0.6); ABSOLUTE LYMPHOCYTES (AUTO) 2.5 10^3/uL (0.5-4.7); ABSOLUTE MONOCYTES (AUTO) 0.5 10^3/uL (0.1-1.4); ABSOLUTE NEUT (AUTO) 5.1 10^3/uL (1.7-8.2); BASOPHILS % (AUTO) 0.7 % (0-2); EOSINOPHILS % (AUTO) 3.5 % (0-6); HEMATOCRIT 34.2 % (36.0-47.0); HEMOGLOBIN 11.4 g/dL (12.0-15.5); LYMPHOCYTES % (AUTO) 29.2 % (13-45); MEAN CORPUSCULAR HEMOGLOBIN 29.7 pg (27.0-33.4); MEAN CORPUSCULAR HGB CONC 33.5 g/dL (32.0-36.0); MEAN CORPUSCULAR VOLUME 89 fl (80-97); MONOCYTES % (AUTO) 6.2 % (3-13); PLATELET COUNT 252 10^3/uL (150-450); RED BLOOD COUNT 3.85 10^6/uL (3.72-5.28); RED CELL DISTRIBUTION WIDTH 13.5 % (11.5-14.0); SEGMENTED NEUTROPHILS % (AUTO) 60.4 % (42-78); TOTAL CELLS COUNTED % (AUTO) 100 %; WHITE BLOOD COUNT 8.5 10^3/uL (4.0-10.5)
--- NOTE | 2018-03-31 19:15 | ER Document Report ---
ED General - General Chief Complaint: Abdominal Pain Stated Complaint: WEAKNESS Time Seen by Provider: 03/31/18 19:03 Primary Care Provider: NISHA DILL MD [Primary Care Provider] - Follow up as needed Notes: Patient is a 72-year-old female who presents to the emergency department with a chief complaint of abdominal pain. She states that her pain is upper quadrant has been going on for the past 3 days. She does have some associated nausea, but denies vomiting or diarrhea. Her past medical history includes diabetes, aortic stenosis, a NSTEMI, stroke, coronary artery disease, and gastrojejunal ulcer. She is tearful and states that she cannot remember a lot of her medical history. TRAVEL OUTSIDE OF THE [place] IN LAST 30 DAYS: No - Related Data Allergies/Adverse Reactions: atropine sulfate [From Lomotil] Allergy (Verified 04/23/17 08:01) Unknown diphenoxylate HCl [From Lomotil] Allergy (Verified 04/23/17 08:01) Unknown NSAIDS (Non-Steroidal Anti-Inflamma [Nsaids] Allergy (Verified 04/23/17 08:01) Unknown pseudoephedrine HCl [From Sudafed] Allergy (Verified 04/23/17 08:01) Unknown Past Medical History - Social History Smoking Status: Never Smoker Family History: CAD, CVA, DM Patient has suicidal ideation: No Patient has homicidal ideation: No - Past Medical History Cardiac Medical History: Reports: Hx Coronary Artery Disease, Hx Heart Attack - 2017, Hx Hypercholesterolemia, Hx Hypertension Pulmonary Medical History: Denies: Hx Asthma, Hx Tuberculosis Neurological Medical History: Reports: Hx Cerebrovascular Accident. Denies: Hx Seizures Endocrine Medical History: Reports: Hx Diabetes Mellitus Type 2 Renal/ Medical History: Denies: Hx Peritoneal Dialysis GI Medical History: Reports: Hx Gastroesophageal Reflux Disease - hernia, Hx Hiatal Hernia, Hx Ulcer - Moving from a prior gastric bypass anastomotic ulcer.. Denies: Hx Hepatitis Musculoskeletal Medical History: Reports Hx Arthritis Psychiatric Medical History: Reports: Hx Dementia, Hx Depression Infectious Medical History: Denies: Hx Hepatitis Past Surgical History: Reports: Hx Cardiac Catheterization, Hx Cardiac Surgery - CABG x3 twice, Hx Coronary Stent - x3 due to stent occlusion, Hx Gastric Bypass Surgery, Hx Hysterectomy, Hx Pancreatic Surgery, Hx Tonsillectomy. Denies: Hx Mastectomy, Hx Open Heart Surgery, Hx Pacemaker - Immunizations Hx Diphtheria, Pertussis, Tetanus Vaccination: - unknown Hx Pneumococcal Vaccination: 02/03/13 Review of Systems - Review of Systems Notes: REVIEW OF SYSTEMS: CONSTITUTIONAL : Denies recent illness. Denies recent unintentional weight loss. Denies fever, chills, or sweats. EENT: Denies eye, ear, throat, or mouth pain, discharge, or symptoms. Denies nasal or sinus congestion. CARDIOVASCULAR: Denies chest pain. RESPIRATORY: Denies shortness of breath, cough, congestion, difficulty breathing, or wheezing. GASTROINTESTINAL: See HPI. GENITOURINARY: Denies difficulty urinating, burning, blood in urine, urgency or frequency. MUSCULOSKELETAL: Denies neck and back pain. Denies joint pain or swelling. SKIN: Denies rash, itchiness, or lesions HEMATOLOGIC : Denies easy bruising or bleeding. LYMPHATIC: Denies swollen, painful, enlarged glands. NEUROLOGICAL: Denies no numbness or tingling denies weakness. Denies headache. Denies altered mental status. Denies alteration in speech. PSYCHIATRIC: Denies stress, anxiety, alteration in sleep patterns, or depression. All other systems reviewed and negative. Physical Exam - Notes Notes: PHYSICAL EXAMINATION: GENERAL: Appears age, healthy, well-nourished, no acute distress. HEAD: Normocephalic, atraumatic. EYES: PERRL, conjunctiva normal, all extraocular movements intact, sclera nonicteric ENT: Moist mucous membranes. NECK: Supple, no noticeable swelling, redness, rash. Normal range of motion. LUNGS: Equal breath sounds bilaterally and clear to auscultation. No wheezes rales or rhonchi. CARDIOVASCULAR: S1-S2, regular rate, regular rhythm. Radial pulses 2+, normal. ABDOMEN: Normoactive bowel sounds. Soft, tender throughout, no guarding, no rebound tenderness, and no masses palpated. EXTREMITIES: Normal strength and range of motion, no pitting or edema. No cyanosis. NEUROLOGICAL: Moves all extremities upon command. Strength 5/5 in all extremities. PSYCH: Normal mood, normal affect. SKIN: Warm, dry. No rash, lesions, ulcerations noted. Normal skin turgor. Course - Re-evaluation Re-evalutation: 03/31/18 19:15 Based off of patient's complaints, she will be sent for a CT of the abdomen and pelvis to rule out any abdominal etiology. She will also be given Zofran to help with her symptoms. Since her pain is mainly in her epigastric area, she will also have a cardiac workup done to rule out acute FL since she has a hi story of a NSTEMI. 03/31/18 20:33 Patient states that she feels better after receiving her Zofran. She denies any nausea or abdominal pain at this time. Her CT of her abdomen and pelvis is negative for any acute findings. Her chest x-ray is normal. She will be sent home with a Zofran dose pack, and will return to [facility]. Patient's troponin is negative. All other labs are normal she does have a mild hyperkalemia, 5.2. Her hematology is unremarkable. Verbal discharge instructions were given to the patient. They verbalized understanding. They are stable for discharge. - Laboratory Result Diagrams: 03/31/18 18:25 03/31/18 18:25 Laboratory results interpreted by me: 03/31/18 03/31/18 03/31/18 18:25 18:25 18:25 Hgb 11.4 L Hct 34.2 L Potassium 5.2 H Est GFR (Non-Af Amer) 51 L AST 12 L Ur Leukocyte Esterase SMALL H - EKG Interpretation by Me Additional EKG results interpreted by me: 03/31/18 20:31 Heart rate 67. Sinus rhythm. CT 160; QRS 122; QT 436; QTC 461. No ST elevations or depressions. Discharge - Discharge Clinical Impression: Nausea Condition: Stable Disposition: HOME, SELF-CARE Additional Instructions: You were seen today in the emergency department for nausea. Your CAT scan is normal. Your labs are normal. You have been given Zofran, nausea medication please take 1 tablet every 4-6 hours as needed for nausea. If you have worsening symptoms, or any symptoms that are worrisome to you, please return to the emergency department. Referrals: NISHA DILL MD [Primary Care Provider] - Follow up as needed
[2018-03-31] MEDS ORDERED: ONDANSETRON HCL INJ/PF 4 MG/2 ML SDV IV ONE (19:17)
[2018-03-31 19:19] LABS: ALANINE AMINOTRANSFERASE 16 U/L (9-52); ALKALINE PHOSPHATASE 76 U/L (38-126); ANION GAP 8 (5-19); ASPARTATE AMINO TRANSFERASE 12 U/L (14-36); BILIRUBIN,DIRECT 0.3 mg/dL (0.0-0.4); BILIRUBIN,TOTAL 0.4 mg/dL (0.2-1.3); BLOOD UREA NITROGEN 20 mg/dL (7-20); CALCIUM 9.8 mg/dL (8.4-10.2); CARBON DIOXIDE 29 mmol/L (22-30); CHLORIDE 105 mmol/L (98-107); GLUCOSE 83 mg/dL (75-110); LIPASE 52.8 U/L (23-300); POTASSIUM 5.2 mmol/L (3.6-5.0); SODIUM 141.5 mmol/L (137-145); TOTAL PROTEIN 6.8 g/dL (6.3-8.2)
--- NOTE | 2018-03-31 19:31 | RADIOLOGY REPORT (SQ) ---
EXAM DESCRIPTION: CHEST SINGLE VIEW COMPLETED DATE/TIME: 03/31/2018 7:21 pm REASON FOR STUDY: epigastric pain COMPARISON: AP chest 07/30/2014, 06/06/2014 EXAM PARAMETERS: NUMBER OF VIEWS: One view. TECHNIQUE: Single frontal radiographic view of the chest acquired. RADIATION DOSE: NA LIMITATIONS: None. FINDINGS: LUNGS AND PLEURA: Lungs are hyperinflated from obstructive disease. No opacities, masses or pneumothorax. No pleural effusion. MEDIASTINUM AND HILAR STRUCTURES: No masses. Contour normal. HEART AND VASCULAR STRUCTURES: Mild cardiomegaly with old sternotomy for CABG BONES: Old left posterior rib fractures HARDWARE: Lower cervical fusion hardware. OTHER: No other significant finding. IMPRESSION: Obstructive lung disease. Old CABG. No acute findings TECHNICAL DOCUMENTATION: JOB ID: [id number] [employer]- All Rights Reserved Reading location - IP/workstation name: [email or web address]
[2018-03-31 19:46] LABS: CREATINE KINASE MB 0.76 ng/mL (<4.55)
[2018-03-31 19:48] LABS: TROPONIN I < 0.012 ng/mL
--- NOTE | 2018-03-31 20:27 | RADIOLOGY REPORT (SQ) ---
EXAM DESCRIPTION: CT ABDOMEN PELVIS WITH IV CONTRAST COMPLETED DATE/TME: 03/31/2018 19:12 CLINICAL HISTORY: 72 years, Female, abdominal pain COMPARISON: 09/06/2010 CT TECHNIQUE: 407 Images stored on PACS. All CT scanners at this facility use dose modulation, iterative reconstruction, and/or weight based dosing when appropriate to reduce radiation dose to as low as reasonably achievable (ALARA). [facility]: Dose Right [facility]: CareDose [facility]: Dose Right [facility]: Teradose 4D [facility]: [employer] LIMITATIONS: None. FINDINGS: Limited evaluation of the lung bases is unremarkable. Osseous structures are grossly intact. Small hiatal hernia. Post surgical changes in the epigastric region, consistent with prior gastric bypass.. If use fatty infiltrative change to the liver. Status post cholecystectomy. The spleen, adrenal glands, are unremarkable. Atrophic appearance to the pancreas. The kidneys are unremarkable bilaterally. Moderate atheromatous changes. Normal appendix. No gross evidence for bowel obstruction. No free air or free fluid. IMPRESSION: Negative for acute intra-abdominal/pelvic process. Fatty infiltrate of change to the liver. Small hiatal hernia. Status post cholecystectomy and gastric bypass. Moderate atheromatous changes.. TECHNICAL DOCUMENTATION: Quality ID # [id number]: Final reports with documentation of one or more dose reduction techniques (e.g., Automated exposure control, adjustment of the mA and/or kV according to patient size, use of iterative reconstruction technique) copyright 2011 [employer]- All Rights Reserved
[2018-03-31] MEDS ORDERED: ONDANSETRON ODT 4 MG TAB (6 TAB/ER DISP) PO PRN (20:37)
[2018-03-31] MEDS ORDERED: MAGNESIUM HYDROXIDE SUSP 30 ML UDCUP PO ONE ×2 (21:04→21:09)
--- NOTE | 2018-03-31 21:24 | EKG REPORT ---
SEVERITY:- ABNORMAL ECG - SINUS RHYTHM PROBABLE LEFT ATRIAL ABNORMALITY RIGHT BUNDLE BRANCH BLOCK PROBABLE ANTEROSEPTAL INFARCT, AGE INDETERM : Confirmed by: Brianna Wolf 31-Mar-2018 21:24:11
== END 2018-03-31 21:38 | disposition home or self-care (01) ==
LOC: ER 18:09
DX: R11.0 Nausea (principal); R10.13 Epigastric pain; E87.5 Hyperkalemia; E11.9 Type 2 diabetes mellitus without complications; I10 Essential (primary) hypertension; I25.10 Atherosclerotic heart disease of native coronary artery without angina pectoris; I25.2 Old myocardial infarction; Z87.11 Personal history of peptic ulcer disease; Z87.19 Personal history of other diseases of the digestive system; Z98.84 Bariatric surgery status; Z95.1 Presence of aortocoronary bypass graft; Z95.5 Presence of coronary angioplasty implant and graft; Z88.8 Allergy status to other drugs, medicaments and biological substances
CPT/HCPCS: 93005; 99284; 96374; 36415; 82553; 82550; 83690; 85025; 80053; 81001; 84484; 71045; 74177; 93010; J2405; A9270

== ENCOUNTER 2018-04-10 23:50 | Emergency (ER) | payer MEDICARE, MEDICAID ==
--- NOTE | 2018-04-11 00:34 | ER Document Report ---
ED General - General Chief Complaint: Abdominal Pain Stated Complaint: ABDOMINAL PAIN Time Seen by Provider: 04/11/18 00:10 Primary Care Provider: NISHA DILL MD [Primary Care Provider] - Follow up as needed Cannot obtain history due to: Dementia Notes: Patient is a 72-year-old female with a past medical history of dementia, hypertension, hyperlipidemia, no prior abdominal surgical history who presents with intermittent episodes of left upper quadrant and left lower rib pain. States that an episode started earlier this evening approximately 30 minutes prior to presentation. States that the pain came on relatively abruptly and was a dull, throbbing, aching pain to the area. Nothing improved or worsen the pain since onset. Was seen by a doctor 1 week ago for similar issues but states that they were unable to find out exactly what was causing her symptoms. Denies any associated nausea or vomiting. Has been having regular bowel movements. Denies any chest pain or shortness of breath. No trauma to the area. TRAVEL OUTSIDE OF THE [place] IN LAST 30 DAYS: No - Related Data Allergies/Adverse Reactions: atropine sulfate [From Lomotil] Allergy (Verified 04/23/17 08:01) Unknown diphenoxylate HCl [From Lomotil] Allergy (Verified 04/23/17 08:01) Unknown NSAIDS (Non-Steroidal Anti-Inflamma [Nsaids] Allergy (Verified 04/23/17 08:01) Unknown pseudoephedrine HCl [From Sudafed] Allergy (Verified 04/23/17 08:01) Unknown Past Medical History - General Information source: Patient - Social History Smoking Status: Never Smoker Frequency of alcohol use: None Drug Abuse: None Lives with: Detention Family History: CAD, CVA, DM - Past Medical History Cardiac Medical History: Reports: Hx Coronary Artery Disease, Hx Heart Attack - 2017, Hx Hypercholesterolemia, Hx Hypertension Pulmonary Medical History: Denies: Hx Asthma, Hx Tuberculosis Neurological Medical History: Reports: Hx Cerebrovascular Accident. Denies: Hx Seizures Endocrine Medical History: Reports: Hx Diabetes Mellitus Type 2 Renal/ Medical History: Denies: Hx Peritoneal Dialysis GI Medical History: Reports: Hx Gastroesophageal Reflux Disease - hernia, Hx Hiatal Hernia, Hx Ulcer - Moving from a prior gastric bypass anastomotic ulcer.. Denies: Hx Hepatitis Musculoskeletal Medical History: Reports Hx Arthritis Psychiatric Medical History: Reports: Hx Dementia, Hx Depression Infectious Medical History: Denies: Hx Hepatitis Past Surgical History: Reports: Hx Cardiac Catheterization, Hx Cardiac Surgery - CABG x3 twice, Hx Coronary Stent - x3 due to stent occlusion, Hx Gastric Bypass Surgery, Hx Hysterectomy, Hx Pancreatic Surgery, Hx Tonsillectomy. Denies: Hx Mastectomy, Hx Open Heart Surgery, Hx Pacemaker - Immunizations Hx Diphtheria, Pertussis, Tetanus Vaccination: - unknown Hx Pneumococcal Vaccination: 02/03/13 Review of Systems - Review of Systems Notes: Constitutional: Negative for fever. HENT: Negative for sore throat. Eyes: Negative for visual changes. Cardiovascular: Negative for chest pain. Respiratory: Negative for shortness of breath. Gastrointestinal: Positive for left upper abdominal pain Genitourinary: Negative for dysuria. Musculoskeletal: Negative for back pain. Skin: Negative for rash. Neurological: Negative for headaches, weakness or numbness. 10 point ROS negative except as marked above and in HPI. Physical Exam - Vital signs Vitals: Temp Pulse Resp BP Pulse Ox 98.3 F 75 16 157/47 H 97 04/11/18 00:10 04/11/18 00:10 04/11/18 00:10 04/11/18 00:10 04/11/18 00:10 Interpretation: Hypertensive Notes: PHYSICAL EXAMINATION: GENERAL: Well-appearing, well-nourished and in no acute distress. HEAD: Atraumatic, normocephalic. EYES: Pupils equal round and reactive to light, extraocular movements intact, sclera anicteric, conjunctiva are normal. ENT: nares patent, oropharynx clear without exudates. Moist mucous membranes. NECK: Normal range of motion, supple without lymphadenopathy LUNGS: Breath sounds clear to auscultation bilaterally and equal. No wheezes rales or rhonchi. HEART: Regular rate and rhythm without murmurs ABDOMEN: Soft, nontender, normoactive bowel sounds. No guarding, no rebound. No masses appreciated. EXTREMITIES: Normal range of motion, no pitting or edema. No cyanosis. NEUROLOGICAL: No focal neurological deficits. Moves all extremities spontaneously and on command. PSYCH: Pleasant, smiling on contact SKIN: Warm, Dry, normal turgor, no rashes or lesions noted. Course - Re-evaluation Re-evalutation: 04/11/18 00:33 Patient presents with left lower rib pain/left upper quadrant pain that started 30 months prior to presentation. Has had similar in the past. On exam she appears quite comfortable, watching television. Abdominal exam is quite benign, very mild tenderness to the left upper quadrant and over the left lower ribs. No rebound or guarding. She denies chest pain or shortness of breath. Given advanced age, will proceed with labs, CT scan of the abdomen and pelvis and reevaluate. 04/11/18 02:12 Labs as well as CT the abdomen pelvis are completely unremarkable. Patient has been resting comfortably in the bed in no apparent discomfort. I have expanded the patient that there is a degree of diagnostic uncertainty regarding the exact etiology of her symptoms given reassuring exam and evaluation with labs and imaging. At this time will discharge with return precautions and follow-up recommendations. Verbal discharge instructions given a the bedside and opportunity for questions given. Medication warnings reviewed. Patient is in agreement with this plan and has verbalized understanding of return precautions and the need for primary care follow-up in the next 24-72 hours. - Vital Signs Vital signs: Temp Pulse Resp BP Pulse Ox 98.3 F 75 16 157/47 H 97 04/11/18 00:10 04/11/18 00:10 04/11/18 00:10 04/11/18 00:10 04/11/18 00:10 - Laboratory Result Diagrams: 04/11/18 00:50 04/11/18 00:50 Laboratory results interpreted by me: 04/11/18 04/11/18 04/11/18 00:25 00:50 00:50 Hgb 11.4 L Hct 34.1 L BUN 23 H Glucose 196 H AST 9 L Urine Glucose (UA) 150 H Ur Leukocyte Esterase MODERATE H - Diagnostic Test Radiology reviewed: Reports reviewed Discharge - Discharge Clinical Impression: Left upper quadrant abdominal pain of unknown etiology, Essential hypertension Condition: Good Disposition: HOME, SELF-CARE Additional Instructions: You have been seen in the Emergency Department (ED) for abdominal pain. Your evaluation did not identify a clear cause of your symptoms but was generally reassuring. The only notable finding is a possible urinary tract infection for which you are being treated with antibiotics. Please take all the antibiotics as directed even if your symptoms have improved. Please follow-up with your primary care physician within the next 1-2 days. Return to emergency room if you develop fever >101F, persistent vomiting, have worsening pain, become lethargic or any other symptoms that are concerning to you. Prescriptions: Cephalexin Monohydrate [Keflex 500 mg Capsule] 500 mg PO Q6H 7 Days capsule Referrals: NISHA DILL MD [Primary Care Provider] - Follow up in 3-5 days
[2018-04-11 00:59] LABS: ABSOLUTE BASOPHILS # (AUTO) 0.1 10^3/uL (0.0-0.2); ABSOLUTE EOSINOPHILS # (AUTO) 0.3 10^3/uL (0.0-0.6); ABSOLUTE LYMPHOCYTES (AUTO) 2.7 10^3/uL (0.5-4.7); ABSOLUTE MONOCYTES (AUTO) 0.7 10^3/uL (0.1-1.4); ABSOLUTE NEUT (AUTO) 4.8 10^3/uL (1.7-8.2); BASOPHILS % (AUTO) 0.9 % (0-2); HEMATOCRIT 34.1 % (36.0-47.0); HEMOGLOBIN 11.4 g/dL (12.0-15.5); LYMPHOCYTES % (AUTO) 31.6 % (13-45); MEAN CORPUSCULAR HEMOGLOBIN 29.8 pg (27.0-33.4); MEAN CORPUSCULAR HGB CONC 33.4 g/dL (32.0-36.0); MEAN CORPUSCULAR VOLUME 89 fl (80-97); MONOCYTES % (AUTO) 8.1 % (3-13); PLATELET COUNT 269 10^3/uL (150-450); RED BLOOD COUNT 3.81 10^6/uL (3.72-5.28); RED CELL DISTRIBUTION WIDTH 13.4 % (11.5-14.0); SEGMENTED NEUTROPHILS % (AUTO) 56.4 % (42-78); TOTAL CELLS COUNTED % (AUTO) 100 %; WHITE BLOOD COUNT 8.6 10^3/uL (4.0-10.5)
[2018-04-11 01:14] LABS: ALANINE AMINOTRANSFERASE 19 U/L (9-52); ALBUMIN 3.8 g/dL (3.5-5.0); ALKALINE PHOSPHATASE 91 U/L (38-126); ANION GAP 9 (5-19); ASPARTATE AMINO TRANSFERASE 9 U/L (14-36); BILIRUBIN,DIRECT 0.2 mg/dL (0.0-0.4); BILIRUBIN,TOTAL 0.3 mg/dL (0.2-1.3); BLOOD UREA NITROGEN 23 mg/dL (7-20); CALCIUM 9.6 mg/dL (8.4-10.2); CARBON DIOXIDE 25 mmol/L (22-30); CHLORIDE 105 mmol/L (98-107); GLUCOSE 196 mg/dL (75-110); LIPASE 58.5 U/L (23-300); POTASSIUM 4.7 mmol/L (3.6-5.0); SODIUM 139.2 mmol/L (137-145); TOTAL PROTEIN 6.5 g/dL (6.3-8.2)
[2018-04-11 01:32] LABS: APPEARANCE,URINE CLEAR; BILIRUBIN,URINE NEGATIVE (NEGATIVE); COLOR,URINE STRAW; GLUCOSE, URINE 150 mg/dL (NEGATIVE); KETONES,URINE NEGATIVE (NEGATIVE); LEUKOCYTE ESTERASE,URINE MODERATE (NEGATIVE); NITRITE,URINE NEGATIVE (NEGATIVE); PROTEIN,URINE NEGATIVE (NEGATIVE); URINE SPECIFIC GRAVITY 1.008; UROBILINOGEN,URINE NEGATIVE mg/dL (<2.0)
--- NOTE | 2018-04-11 02:06 | RADIOLOGY REPORT (SQ) ---
CLINICAL HISTORY: abdominal pain, elderly COMPARISON: March 31, 2018. TECHNIQUE: CT ABDOMEN PELVIS WITH IV CONTRAST on 04/11/2018 12:11 AM [employer]ITER[employer] TE[employer] This exam was performed according to our departmental dose-optimization program, which includes automated exposure control, adjustment of the mA and/or kV according to patient size and/or use of iterative reconstruction technique. FINDINGS: Lower lungs are clear. Abdomen: The liver is normal in appearance. There is no biliary dilatation. a cholecystectomy was performed. There are postoperative changes of the stomach. The pancreas and spleen are normal in appearance. The adrenal glands and kidneys are unremarkable. Abdominal aorta is normal in course and caliber without aneurysm. There is no free air. There is no retroperitoneal adenopathy. Pelvis: There is no bowel obstruction. Urinary bladder is unremarkable. There is no free fluid. Uterus is poorly seen. Appendix is normal. Skeleton: There are no acute osseous findings. No suspicious bony lesions. IMPRESSION: No definite acute inflammatory process. No renal or ureteral calculi.
[2018-04-11] MEDS ORDERED: CEPHALEXIN 500 MG CAPSULE PO ONE (02:10)
[2018-04-11 03:48] VITALS: BP 164/65
== END 2018-04-11 04:09 | disposition home or self-care (01) ==
LOC: ER 23:50
DX: R10.12 Left upper quadrant pain (principal); R07.81 Pleurodynia; I10 Essential (primary) hypertension; I25.10 Atherosclerotic heart disease of native coronary artery without angina pectoris; I25.2 Old myocardial infarction; E11.9 Type 2 diabetes mellitus without complications; Z98.84 Bariatric surgery status; Z87.19 Personal history of other diseases of the digestive system; Z88.8 Allergy status to other drugs, medicaments and biological substances; Z95.1 Presence of aortocoronary bypass graft; Z95.5 Presence of coronary angioplasty implant and graft
CPT/HCPCS: 99284; 36415; 87086; 83690; 85025; 87088; 80053; 81001; 84484; 87186; 74177; A9270

== ENCOUNTER 2018-08-26 20:52 | Emergency (ER) | payer MEDICARE, MEDICAID ==
[2018-08-26 21:38] LABS: ABSOLUTE EOSINOPHILS # (AUTO) 0.2 10^3/uL (0.0-0.6); ABSOLUTE LYMPHOCYTES (AUTO) 2.1 10^3/uL (0.5-4.7); ABSOLUTE MONOCYTES (AUTO) 0.6 10^3/uL (0.1-1.4); ABSOLUTE NEUT (AUTO) 5.4 10^3/uL (1.7-8.2); BASOPHILS % (AUTO) 0.6 % (0-2); EOSINOPHILS % (AUTO) 2.6 % (0-6); HEMATOCRIT 34.9 % (36.0-47.0); HEMOGLOBIN 11.6 g/dL (12.0-15.5); LYMPHOCYTES % (AUTO) 25.1 % (13-45); MEAN CORPUSCULAR HEMOGLOBIN 29.7 pg (27.0-33.4); MEAN CORPUSCULAR HGB CONC 33.3 g/dL (32.0-36.0); MEAN CORPUSCULAR VOLUME 89 fl (80-97); MONOCYTES % (AUTO) 7.7 % (3-13); PLATELET COUNT 271 10^3/uL (150-450); RED BLOOD COUNT 3.91 10^6/uL (3.72-5.28); RED CELL DISTRIBUTION WIDTH 13.7 % (11.5-14.0); TOTAL CELLS COUNTED % (AUTO) 100 %; WHITE BLOOD COUNT 8.4 10^3/uL (4.0-10.5)
[2018-08-26 21:55] LABS: ALANINE AMINOTRANSFERASE 21 U/L (9-52); ALBUMIN 3.6 g/dL (3.5-5.0); ALKALINE PHOSPHATASE 73 U/L (38-126); ANION GAP 10 (5-19); ASPARTATE AMINO TRANSFERASE 12 U/L (14-36); BILIRUBIN,DIRECT 0.2 mg/dL (0.0-0.4); BILIRUBIN,TOTAL 0.2 mg/dL (0.2-1.3); BLOOD UREA NITROGEN 22 mg/dL (7-20); CALCIUM 9.5 mg/dL (8.4-10.2); CARBON DIOXIDE 24 mmol/L (22-30); CHLORIDE 102 mmol/L (98-107); GLUCOSE 273 mg/dL (75-110); LIPASE 68.3 U/L (23-300); POTASSIUM 4.6 mmol/L (3.6-5.0); SODIUM 135.6 mmol/L (137-145); TOTAL PROTEIN 6.3 g/dL (6.3-8.2)
--- NOTE | 2018-08-27 01:09 | ER Document Report ---
ED General - General Chief Complaint: Abdominal Pain Stated Complaint: ABDOMINAL PAIN Time Seen by Provider: 08/27/18 00:41 Primary Care Provider: SARA HECK MD [Primary Care Provider] - 08/28/18 Notes: Patient is a pleasant 72-year-old female who presents with complaint of having left upper quadrant abdominal tenderness earlier today. She says since arriving to the ED it is resolved. She denies any vomiting. No fevers. No pain in the chest. No difficulty breathing. No swelling. Patient was here in March for the same thing had a CT scan and labs performed which were negative. Patient's says she said she cannot remember that far back and is unsure if the pain is sustained. She does have previous history of gastric ulcers and GI bleeding. She does not noticed any abnormalities in her stool. She cannot think of anything that made the pain better or worse. She does not think it was affected by eating. TRAVEL OUTSIDE OF THE [place] IN LAST 30 DAYS: No - Related Data Allergies/Adverse Reactions: atropine sulfate [From Lomotil] Allergy (Verified 04/23/17 08:01) Unknown diphenoxylate HCl [From Lomotil] Allergy (Verified 04/23/17 08:01) Unknown NSAIDS (Non-Steroidal Anti-Inflamma [Nsaids] Allergy (Verified 04/23/17 08:01) Unknown pseudoephedrine HCl [From Sudafed] Allergy (Verified 04/23/17 08:01) Unknown Past Medical History - Social History Smoking Status: Never Smoker Frequency of alcohol use: None Drug Abuse: None Family History: CAD, CVA, DM - Past Medical History Cardiac Medical History: Reports: Hx Coronary Artery Disease, Hx Heart Attack - 2017, Hx Hypercholesterolemia, Hx Hypertension Pulmonary Medical History: Denies: Hx Asthma, Hx Tuberculosis Neurological Medical History: Reports: Hx Cerebrovascular Accident. Denies: Hx Seizures Endocrine Medical History: Reports: Hx Diabetes Mellitus Type 2 Renal/ Medical History: Denies: Hx Peritoneal Dialysis GI Medical History: Reports: Hx Gastroesophageal Reflux Disease - hernia, Hx Hiatal Hernia, Hx Ulcer - Moving from a prior gastric bypass anastomotic ulcer.. Denies: Hx Hepatitis Musculoskeletal Medical History: Reports Hx Arthritis Psychiatric Medical History: Reports: Hx Dementia, Hx Depression Infectious Medical History: Denies: Hx Hepatitis Past Surgical History: Reports: Hx Cardiac Catheterization, Hx Cardiac Surgery - CABG x3 twice, Hx Coronary Stent - x3 due to stent occlusion, Hx Gastric Bypass Surgery, Hx Hysterectomy, Hx Pancreatic Surgery, Hx Tonsillectomy. Denies: Hx Mastectomy, Hx Open Heart Surgery, Hx Pacemaker - Immunizations Hx Diphtheria, Pertussis, Tetanus Vaccination: - unknown Hx Pneumococcal Vaccination: 02/03/13 Review of Systems - Review of Systems Notes: My Normal Review Basic REVIEW OF SYSTEMS: CONSTITUTIONAL : Denies fever, chills, or sweats. Denies recent illness. EENT: Denies eye, ear, throat, or mouth pain or symptoms. Denies nasal or sinus congestion. CARDIOVASCULAR: Denies chest pain. RESPIRATORY: Denies cough, cold, or chest congestion. Denies shortness of breath, difficulty breathing, or wheezing. GASTROINTESTINAL: Left upper quadrant abdominal pain. MUSCULOSKELETAL: Denies neck or back pain or joint pain or swelling. SKIN: Denies rash or skin lesions. NEUROLOGICAL: Denies altered mental status or loss of consciousness. Denies headache. Denies weakness or paralysis or loss of use of either side. Denies problems with gait or speech. Denies sensory or motor loss. ALL OTHER SYSTEMS REVIEWED AND NEGATIVE. Physical Exam - Vital signs Vitals: Temp Resp Pulse Ox 98.2 F 22 H 94 08/26/18 21:20 08/26/18 21:20 08/26/18 21:20 - Notes Notes: General Appearance: Well nourished, alert, cooperative, no acute distress, no obvious discomfort. Well-appearing. Vitals: reviewed, See vital signs table. Eyes: PERRL, EOMI, Conjuctiva clear Mouth: No decreasd moisture Lungs: No wheezing, No rales, No rhonci, No accessory muscle use, good air exchange bilaterally. Heart: Normal rate, Regular rythm, No murmur, no rub Abdomen: Normal BS, soft, No rigidity, mild left upper quadrant abdominal tenderness palpation, No guarding, no rebound, no abdominal masses, no organomegaly Extremities: good pulses in all extremities, no swelling or tenderness in the extremities, no edema. Skin: warm, dry, appropriate color, no rash Neuro: speech clear, oriented x 3, normal affect, responds appropriately to questions. Course - Re-evaluation Re-evalutation: 08/27/18 02:00 Patient remains pain-free and she continues to look very well with normal vital signs. Her laboratory evaluation is unremarkable. I did obtain a troponin just because the pain was in the left upper abdomen. Troponin is negative. EKG does not show any concerning findings. Her name is benign with only mild pain to palpation left upper quadrant. Looking through records she does have previous history of gastric ulcers and therefore I think there is possibility that her pain could be related to gastritis or irritation of the stomach lining. I will place her on Pepcid. I encouraged her to have a low threshold to return to ER if she has any chest pain, difficulty breathing, recurrent abdominal pain, vomiting, or if she feels unwell. Patient agrees with plan and will be discharged home. Dictation of this chart was performed using voice recognition software; therefore, there may be some unintended grammatical errors. - Vital Signs Vital signs: Temp Pulse Resp BP Pulse Ox 98.3 F 17 167/84 H 97 08/27/18 02:02 08/27/18 02:02 08/27/18 02:02 08/27/18 02:02 - Laboratory Result Diagrams: 08/26/18 21:28 08/26/18 21:28 Laboratory results interpreted by me: 08/26/18 08/26/18 08/27/18 21:28 21:28 00:41 Hgb 11.6 L Hct 34.9 L Sodium 135.6 L BUN 22 H Est GFR (Non-Af Amer) 59 L Glucose 273 H AST 12 L Urine Glucose (UA) >=500 H Ur Leukocyte Esterase TRACE H - EKG Interpretation by Me Additional EKG results interpreted by me: 08/27/18 01:09 EKG is reviewed and interpreted by me. EKG shows sinus rhythm with a rate of [address] segment elevation or depression. Patient does have a right bundle branch block with T wave inversions in anteroseptal leads which is unchanged comparison to her previous EKG from March 31, 2018. Discharge - Discharge Clinical Impression: Abdominal pain Qualifiers: Abdominal location: left upper quadrant Qualified Code(s): R10.12 - Left upper quadrant pain Condition: Good Disposition: HOME, SELF-CARE Additional Instructions: Your blood work did not show any concerning findings. At this time I feel it is safe to let you go home being that your pain has resolved and you look well. There is a chance your pain could be caused by a gastritis or irritation of the stomach lining. I will have you start taking a medication called Pepcid. I have written a prescription for this medication. Please avoid spicy and acidic foods. Please follow-up with your doctor in a couple of days for reevaluation. Please have a very low threshold to return to the ER if you have recurrent pain, fevers, vomiting, any chest pain or difficulty breathing, sweating associated with pain, or if you feel unwell. Prescriptions: Famotidine [Pepcid 40 mg Tablet] 40 mg PO DAILY #20 tablet Referrals: SARA HECK MD [Primary Care Provider] - 08/28/18
[2018-08-27 01:28] LABS: APPEARANCE,URINE CLEAR; BILIRUBIN,URINE NEGATIVE (NEGATIVE); COLOR,URINE YELLOW; GLUCOSE, URINE >=500 mg/dL (NEGATIVE); KETONES,URINE NEGATIVE (NEGATIVE); LEUKOCYTE ESTERASE,URINE TRACE (NEGATIVE); NITRITE,URINE NEGATIVE (NEGATIVE); PROTEIN,URINE NEGATIVE (NEGATIVE); URINE SPECIFIC GRAVITY 1.011; UROBILINOGEN,URINE NEGATIVE mg/dL (<2.0)
[2018-08-27] MEDS ORDERED: FAMOTIDINE 20 MG TABLET PO ONE (01:57)
[2018-08-27 02:17] VITALS: BP 167/84
--- NOTE | 2018-08-27 18:31 | EKG REPORT ---
SEVERITY:- ABNORMAL ECG - SINUS RHYTHM PROBABLE LEFT ATRIAL ABNORMALITY RIGHT BUNDLE BRANCH BLOCK PROBABLE ANTEROSEPTAL INFARCT, AGE INDETERM : Confirmed by: Brianna Wolf 27-Aug-2018 18:30:44
== END 2018-08-27 02:00 | disposition home or self-care (01) ==
LOC: ER 20:52
DX: R10.9 Unspecified abdominal pain (principal); R10.12 Left upper quadrant pain
CPT/HCPCS: 93005; 99284; 36415; 83690; 85025; 80053; 81001; 84484; 93010; A9270

== ENCOUNTER 2018-12-23 14:42 | Emergency (ER) | payer MEDICARE, MEDICAID ==
--- NOTE | 2018-12-23 15:18 | ER Document Report ---
ED Medical Screen (RME) - General Chief Complaint: Vaginal Pain Stated Complaint: VAGINAL PAIN Time Seen by Provider: 12/23/18 15:07 Primary Care Provider: SARA HECK MD [Primary Care Provider] - Follow up as needed Mode of Arrival: Wheelchair Information source: Patient, Outside Facility Records Notes: This 73-year-old female presents emergency department with complaints of pain when she voids vaginal irritation. Denies vaginal discharge denies vaginal bleeding. Denies fever vomiting diarrhea. Patient does have a history of dementia is a resident at [facility]. I have greeted and performed a rapid initial assessment of this patient. A comprehensive ED assessment and evaluation of the patient, analysis of test results and completion of the medical decision making process will be conducted by additional ED providers. Dictation of this chart was performed using voice recognition software; therefore, there may be some unintended grammatical errors. TRAVEL OUTSIDE OF THE [place] IN LAST 30 DAYS: No - Related Data Allergies/Adverse Reactions: atropine sulfate [From Lomotil] Allergy (Verified 12/23/18 15:08) Unknown diphenoxylate HCl [From Lomotil] Allergy (Verified 12/23/18 15:08) Unknown NSAIDS (Non-Steroidal Anti-Inflamma [Nsaids] Allergy (Verified 12/23/18 15:08) Unknown pseudoephedrine HCl [From Sudafed] Allergy (Verified 12/23/18 15:08) Unknown Past Medical History - Social History Chew tobacco use (# tins/day): No Frequency of alcohol use: None Drug Abuse: None - Past Medical History Cardiac Medical History: Reports: Hx Coronary Artery Disease, Hx Heart Attack - 2017, Hx Hypercholesterolemia, Hx Hypertension Pulmonary Medical History: Denies: Hx Asthma, Hx Tuberculosis Neurological Medical History: Reports: Hx Cerebrovascular Accident. Denies: Hx Seizures Endocrine Medical History: Reports: Hx Diabetes Mellitus Type 2 Renal/ Medical History: Denies: Hx Peritoneal Dialysis GI Medical History: Reports: Hx Gastroesophageal Reflux Disease - hernia, Hx Hiatal Hernia, Hx Ulcer - Moving from a prior gastric bypass anastomotic ulcer.. Denies: Hx Hepatitis Musculoskeltal Medical History: Reports Hx Arthritis Psychiatric Medical History: Reports: Hx Dementia, Hx Depression Infectious Medical History: Denies: Hx Hepatitis Past Surgical History: Reports: Hx Cardiac Catheterization, Hx Cardiac Surgery - CABG x3 twice, Hx Coronary Stent - x3 due to stent occlusion, Hx Gastric Bypass Surgery, Hx Hysterectomy, Hx Pancreatic Surgery, Hx Tonsillectomy. Denies: Hx Mastectomy, Hx Open Heart Surgery, Hx Pacemaker - Immunizations Hx Diphtheria, Pertussis, Tetanus Vaccination: - unknown Physical Exam - Vital signs Vitals: Temp Pulse Resp BP Pulse Ox 98.7 F 86 20 105/59 L 96 12/23/18 14:56 12/23/18 14:56 12/23/18 14:56 12/23/18 14:56 12/23/18 14:56 Course - Vital Signs Vital signs: Temp Pulse Resp BP Pulse Ox 98.7 F 86 20 105/59 L 96 12/23/18 14:56 12/23/18 14:56 12/23/18 14:56 12/23/18 14:56 12/23/18 14:56 Doctor's Discharge - Discharge Referrals: SARA HECK MD [Primary Care Provider] - Follow up as needed
[2018-12-23 16:03] LABS: ABSOLUTE BASOPHILS # (AUTO) 0.1 10^3/uL (0.0-0.2); ABSOLUTE EOSINOPHILS # (AUTO) 0.2 10^3/uL (0.0-0.6); ABSOLUTE LYMPHOCYTES (AUTO) 2.4 10^3/uL (0.5-4.7); ABSOLUTE MONOCYTES (AUTO) 1.1 10^3/uL (0.1-1.4); ABSOLUTE NEUT (AUTO) 10.2 10^3/uL (1.7-8.2); BASOPHILS % (AUTO) 0.5 % (0-2); EOSINOPHILS % (AUTO) 1.2 % (0-6); HEMATOCRIT 38.7 % (36.0-47.0); HEMOGLOBIN 12.9 g/dL (12.0-15.5); MEAN CORPUSCULAR HEMOGLOBIN 30.3 pg (27.0-33.4); MEAN CORPUSCULAR HGB CONC 33.2 g/dL (32.0-36.0); MEAN CORPUSCULAR VOLUME 91 fl (80-97); MONOCYTES % (AUTO) 7.9 % (3-13); PLATELET COUNT 346 10^3/uL (150-450); RED BLOOD COUNT 4.23 10^6/uL (3.72-5.28); RED CELL DISTRIBUTION WIDTH 13.9 % (11.5-14.0); SEGMENTED NEUTROPHILS % (AUTO) 73.4 % (42-78); TOTAL CELLS COUNTED % (AUTO) 100 %; WHITE BLOOD COUNT 13.9 10^3/uL (4.0-10.5)
[2018-12-23 16:21] LABS: ALBUMIN 4.4 g/dL (3.5-5.0); ALKALINE PHOSPHATASE 86 U/L (38-126); ANION GAP 14 (5-19); ASPARTATE AMINO TRANSFERASE 16 U/L (14-36); BILIRUBIN,DIRECT 0.2 mg/dL (0.0-0.4); BILIRUBIN,TOTAL 0.3 mg/dL (0.2-1.3); BLOOD UREA NITROGEN 25 mg/dL (7-20); CALCIUM 10.7 mg/dL (8.4-10.2); CARBON DIOXIDE 23 mmol/L (22-30); CHLORIDE 107 mmol/L (98-107); GLUCOSE 107 mg/dL (75-110); TOTAL PROTEIN 7.8 g/dL (6.3-8.2)
[2018-12-23 18:21] LABS: AMORPHOUS SEDIMENT,URINE TRACE /HPF; APPEARANCE,URINE TURBID; BILIRUBIN,URINE SMALL (NEGATIVE); COLOR,URINE YELLOW; GLUCOSE, URINE NEGATIVE (NEGATIVE); KETONES,URINE TRACE mg/dL (NEGATIVE); PROTEIN,URINE >=500 mg/dL (NEGATIVE); URINE SPECIFIC GRAVITY 1.029
[2018-12-23] MEDS ORDERED: CEPHALEXIN 500 MG CAPSULE PO ONE (18:24)
[2018-12-23] MEDS ORDERED: PHENAZOPYRIDINE HCL 200 MG TABLET PO ONE (18:24)
--- NOTE | 2018-12-23 19:50 | ER Document Report ---
ED GI/ - General Chief Complaint: Vaginal Pain Stated Complaint: VAGINAL PAIN Time Seen by Provider: 12/23/18 15:07 Primary Care Provider: SARA HECK MD [Primary Care Provider] - Follow up as needed Mode of Arrival: Wheelchair Notes: Patient is a 73-year-old female history of dementia from [facility] assisted living presents to the emergency department for dysuria. Patient does have a history of dementia but is able to tell me the current to date and that she is having discomfort urinating. Staff states throughout patient's stay in the emergency department she has been "not making much sense." When I speak to her she is alert and oriented x4. Nursing staff states that the patient attempted to urinate on the floor. This was "erratic behavior" per nursing staff. Nursing staff has been able to speak with staff at [facility]. They voiced patient is sexually active and they are concerned for sexually transmitted diseases. When I discussed this with patient at bedside she states "yes we do touch each other sometimes." Patient's denying any vaginal discharge or vaginal rash. Patient is consenting to a pelvic exam. Patient is denying any abdominal pain/back pain. Only complaining of dysuria. TRAVEL OUTSIDE OF THE [place] IN LAST 30 DAYS: No - Related Data Allergies/Adverse Reactions: atropine sulfate [From Lomotil] Allergy (Verified 12/23/18 15:08) Unknown diphenoxylate HCl [From Lomotil] Allergy (Verified 12/23/18 15:08) Unknown NSAIDS (Non-Steroidal Anti-Inflamma [Nsaids] Allergy (Verified 12/23/18 15:08) Unknown pseudoephedrine HCl [From Sudafed] Allergy (Verified 12/23/18 15:08) Unknown Past Medical History - General Information source: Patient, Outside Facility Records - Social History Smoking Status: Never Smoker Chew tobacco use (# tins/day): No Frequency of alcohol use: None Drug Abuse: None Family History: CAD, CVA, DM Patient has suicidal ideation: No Patient has homicidal ideation: No - Past Medical History Cardiac Medical History: Reports: Hx Coronary Artery Disease, Hx Heart Attack - 2017, Hx Hypercholesterolemia, Hx Hypertension Pulmonary Medical History: Denies: Hx Asthma, Hx Tuberculosis Neurological Medical History: Reports: Hx Cerebrovascular Accident. Denies: Hx Seizures Endocrine Medical History: Reports: Hx Diabetes Mellitus Type 2 Renal/ Medical History: Denies: Hx Peritoneal Dialysis GI Medical History: Reports: Hx Gastroesophageal Reflux Disease - hernia, Hx Hiatal Hernia, Hx Ulcer - Moving from a prior gastric bypass anastomotic ulcer.. Denies: Hx Hepatitis Musculoskeletal Medical History: Reports Hx Arthritis Psychiatric Medical History: Reports: Hx Dementia, Hx Depression Infectious Medical History: Denies: Hx Hepatitis Past Surgical History: Reports: Hx Cardiac Catheterization, Hx Cardiac Surgery - CABG x3 twice, Hx Coronary Stent - x3 due to stent occlusion, Hx Gastric Bypass Surgery, Hx Hysterectomy, Hx Pancreatic Surgery, Hx Tonsillectomy. Denies: Hx Mastectomy, Hx Open Heart Surgery, Hx Pacemaker - Immunizations Hx Diphtheria, Pertussis, Tetanus Vaccination: - unknown Hx Pneumococcal Vaccination: 02/03/13 Review of Systems - Review of Systems Constitutional: denies: Fever EENT: No symptoms reported Cardiovascular: No symptoms reported Respiratory: No symptoms reported Gastrointestinal: See HPI Genitourinary: See HPI Female Genitourinary: See HPI Musculoskeletal: No symptoms reported. denies: Back pain Skin: No symptoms reported Hematologic/Lymphatic: No symptoms reported Neurological/Psychological: See HPI Physical Exam - Vital signs Vitals: Temp Pulse Resp BP Pulse Ox 98.7 F 86 20 105/59 L 96 12/23/18 14:56 12/23/18 14:56 12/23/18 14:56 12/23/18 14:56 12/23/18 14:56 - Notes Notes: GENERAL: Alert, interacts well. No acute distress. HEAD: Normocephalic, atraumatic. EYES: Pupils equal, round, and reactive to light. Extraocular movements intact. ENT: Oral mucosa moist, tongue midline. NECK: Full range of motion. Supple. Trachea midline. LUNGS: Clear to auscultation bilaterally, no wheezes, rales, or rhonchi. No respiratory distress. HEART: Regular rate and rhythm. No murmur ABDOMEN: Soft, non-tender. Non-distended. Bowel sounds present in all 4 quadrants. EXTREMITIES: Moves all 4 extremities spontaneously. No edema, normal radial and dorsalis pedis pulses bilaterally. No cyanosis. BACK: no cervical, thoracic, lumbar midline tenderness. No saddle anesthesia, normal distal neurovascular exam. NEUROLOGICAL: Alert and oriented x3. Normal speech. cranial nerves II through XII grossly intact PSYCH: Normal affect, normal mood. SKIN: Warm, dry, normal turgor. No rashes or lesions noted. Genitalia: Neris Mast RN, no obvious lesions noted. Full speculum exam not performed secondary due to comfort. No obvious discharge seen from vaginal canal. Wet mount and gonorrhea and chlamydia swabs obtained. Course - Re-evaluation Re-evalutation: 12/23/18 19:50 Laboratory 12/23/18 12/23/18 12/23/18 15:52 15:52 17:50 WBC 13.9 H RBC 4.23 Hgb 12.9 Hct 38.7 MCV 91 MCH 30.3 MCHC 33.2 RDW 13.9 Plt Count 346 Lymph % (Auto) 17.0 [place] % (Auto) 7.9 Eos % (Auto) 1.2 Baso % (Auto) 0.5 Absolute Neuts (auto) 10.2 H Absolute Lymphs (auto) 2.4 Absolute Monos (auto) 1.1 Absolute Eos (auto) 0.2 Absolute Basos (auto) 0.1 Seg Neutrophils % 73.4 Sodium 143.5 Potassium 5.0 Chloride 107 Carbon Dioxide 23 Anion Gap 14 BUN 25 H Creatinine 1.25 Est GFR ( Amer) 51 L Est GFR (MDRD) Non-Af 42 L Glucose 107 Calcium 10.7 H Total Bilirubin 0.3 Direct Bilirubin 0.2 Neonat Total Bilirubin Not Reportable Neonat Direct Bilirubin Not Reportable Neonat Indirect Bili Not Reportable AST 16 ALT 16 Alkaline Phosphatase 86 Total Protein 7.8 Albumin 4.4 Urine Color YELLOW Urine Appearance TURBID Urine pH 5.0 Ur Specific Tye 1.029 Urine Protein >=500 H Urine Glucose (UA) NEGATIVE Urine Ketones TRACE H Urine Blood LARGE H Urine Nitrite (Reflex) NEGATIVE Urine Bilirubin SMALL H Urine Urobilinogen 2.0 H Leukocyte Esterase Rfl MODERATE H Urine RBC (Auto) >182 Urine WBC (Reflex) > 182 Urine WBC Clumps MANY Squamous Epi Cells Auto 12 U Non-Squamous Epis Auto 2 Amorphous Sediment Auto TRACE Urine Mucus (Auto) RARE Urine Ascorbic Acid NEGATIVE 12/23/18 20:27 Laboratory 12/23/18 12/23/18 12/23/18 15:52 15:52 17:50 WBC 13.9 H RBC 4.23 Hgb 12.9 Hct 38.7 MCV 91 MCH 30.3 MCHC 33.2 RDW 13.9 Plt Count 346 Lymph % (Auto) 17.0 [place] % (Auto) 7.9 Eos % (Auto) 1.2 Baso % (Auto) 0.5 Absolute Neuts (auto) 10.2 H Absolute Lymphs (auto) 2.4 Absolute Monos (auto) 1.1 Absolute Eos (auto) 0.2 Absolute Basos (auto) 0.1 Seg Neutrophils % 73.4 Sodium 143.5 Potassium 5.0 Chloride 107 Carbon Dioxide 23 Anion Gap 14 BUN 25 H Creatinine 1.25 Est GFR ( Amer) 51 L Est GFR (MDRD) Non-Af 42 L Glucose 107 Calcium 10.7 H Total Bilirubin 0.3 Direct Bilirubin 0.2 Neonat Total Bilirubin Not Reportable Neonat Direct Bilirubin Not Reportable Neonat Indirect Bili Not Reportable AST 16 ALT 16 Alkaline Phosphatase 86 Total Protein 7.8 Albumin 4.4 Urine Color YELLOW Urine Appearance TURBID Urine pH 5.0 Ur Specific Tye 1.029 Urine Protein >=500 H Urine Glucose (UA) NEGATIVE Urine Ketones TRACE H Urine Blood LARGE H Urine Nitrite (Reflex) NEGATIVE Urine Bilirubin SMALL H Urine Urobilinogen 2.0 H Leukocyte Esterase Rfl MODERATE H Urine RBC (Auto) >182 Urine WBC (Reflex) > 182 Urine WBC Clumps MANY Squamous Epi Cells Auto 12 U Non-Squamous Epis Auto 2 Amorphous Sediment Auto TRACE Urine Mucus (Auto) RARE Urine Ascorbic Acid NEGATIVE Trichomonas (Wet Prep) Vaginal WBC Vaginal Yeast 12/23/18 19:40 WBC RBC Hgb Hct MCV MCH MCHC RDW Plt Count Lymph % (Auto) [place] % (Auto) Eos % (Auto) Baso % (Auto) Absolute Neuts (auto) Absolute Lymphs (auto) Absolute Monos (auto) Absolute Eos (auto) Absolute Basos (auto) Seg Neutrophils % Sodium Potassium Chloride Carbon Dioxide Anion Gap BUN Creatinine Est GFR ( Amer) Est GFR (MDRD) Non-Af Glucose Calcium Total Bilirubin Direct Bilirubin Neonat Total Bilirubin Neonat Direct Bilirubin Neonat Indirect Bili AST ALT Alkaline Phosphatase Total Protein Albumin Urine Color Urine Appearance Urine pH Ur Specific Tye Urine Protein Urine Glucose (UA) Urine Ketones Urine Blood Urine Nitrite (Reflex) Urine Bilirubin Urine Urobilinogen Leukocyte Esterase Rfl Urine RBC (Auto) Urine WBC (Reflex) Urine WBC Clumps Squamous Epi Cells Auto U Non-Squamous Epis Auto Amorphous Sediment Auto Urine Mucus (Auto) Urine Ascorbic Acid Trichomonas (Wet Prep) NO TRICHOMONAS SEEN Vaginal WBC 1+ WBCS SEEN Vaginal Yeast NO YEAST SEEN Patient has been prophylactically treated for gonorrhea and chlamydia in the emergency department. Discussed with her diagnosis of urinary tract infection. Patient stable for discharge. Patient is conscious alert and oriented x4. Answering questions appropriately when I asked them. Back there is September of the contact is a - Vital Signs Vital signs: Temp Pulse Resp BP Pulse Ox 98.5 F 79 18 141/77 H 98 12/23/18 23:18 12/23/18 23:18 12/23/18 23:18 12/23/18 23:18 12/23/18 23:18 - Laboratory Result Diagrams: 12/23/18 15:52 12/23/18 15:52 Laboratory results interpreted by me: 12/23/18 12/23/18 12/23/18 15:52 15:52 17:50 WBC 13.9 H Absolute Neuts (auto) 10.2 H BUN 25 H Est GFR ( Amer) 51 L Est GFR (MDRD) Non-Af 42 L Calcium 10.7 H Urine Protein >=500 H Urine Ketones TRACE H Urine Blood LARGE H Urine Bilirubin SMALL H Urine Urobilinogen 2.0 H Leukocyte Esterase Rfl MODERATE H Discharge - Discharge Clinical Impression: Urinary tract infection Qualifiers: Urinary tract infection type: acute cystitis Hematuria presence: without hematuria Qualified Code(s): N30.00 - Acute cystitis without hematuria Condition: Stable Disposition: HOME, SELF-CARE Instructions: Cephalexin ([facility]), Urinary Anesthetic Agent ([facility]), Urinary Tract Infection ([facility]) Additional Instructions: As we discussed you have been seen and treated in the emergency department for a urinary tract infection. Please make sure you take your antibiotics as prescribed. Please also make sure he follow-up with your primary care provider in the next 12 to 24 hours. Return to the emergency room for any concerns. Prescriptions: Cephalexin Monohydrate [Keflex 500 mg Capsule] 500 mg PO BID 7 Days #14 capsule Phenazopyridine HCl [Pyridium] 200 mg PO TID 2 Days tablet Referrals: SARA HECK MD [Primary Care Provider] - Follow up as needed
[2018-12-23] MEDS ORDERED: CEFTRIAXONE INJ 250 MG VIAL IM ONE (20:06)
[2018-12-23] MEDS ORDERED: AZITHROMYCIN 250 MG TABLET PO ONE (20:06)
[2018-12-23] MEDS ORDERED: LIDOCAINE 1% INJ-PF (10 MG/ML) 30 ML SDV NEB ONE (20:06)
[2018-12-23 20:18] LABS: T.VAGINALIS (WET MOUNT) NO TRICHOMONAS SEEN; WBCS (WET MOUNT) 1+ WBCS SEEN; YEAST (WET MOUNT) NO YEAST SEEN
[2018-12-23 21:41] LABS: CHLAM PCR NOT DETECTED (NOT DETECT)
[2018-12-23 23:38] VITALS: BP 141/77
== END 2018-12-23 23:19 | disposition home or self-care (01) ==
LOC: ER 14:42
DX: N30.00 Acute cystitis without hematuria (principal); Z20.2 Contact with and (suspected) exposure to infections with a predominantly sexual mode of transmission; I25.10 Atherosclerotic heart disease of native coronary artery without angina pectoris; I10 Essential (primary) hypertension; E11.9 Type 2 diabetes mellitus without complications; Z95.1 Presence of aortocoronary bypass graft; Z95.5 Presence of coronary angioplasty implant and graft; Z98.84 Bariatric surgery status; Z88.8 Allergy status to other drugs, medicaments and biological substances
CPT/HCPCS: 36415; 87210; 85025; 80053; 81001; 87491; 87591; A9270 ×3; J3490; J0696; 87086; 87088